=== PATIENT | male | born 1985 | race Two or more races ===

== ENCOUNTER 2020-02-10 09:46 | Day surgery (SDC) | payer OTHER, SELFPAY ==
[2020-02-05 15:00] VITALS: BMI 30.7
--- NOTE | 2020-02-05 15:30 | HO.ANESPROP2 ---
Documented by User: Barbara Lewis 02/05/20 15:32 HPI - Anesthesia Eval Consult details Narrative: 34yo M for colonoscopy: abd pain, change in bowel habits PMFSH Past Medical History Medical History Back pain Hx of irritable bowel syndrome Hx of renal calculi Lab test negative for COVID-19 virus Mood changes Surgical History Surgical History Hx of excision of mass Social History Social History Smoking Status: Current every day smoker Years Smoked: 13 Smoked in Last 30 Days: Yes Use of substances other than those prescribed or required for medical reasons: Yes Substance Use Frequency: Occasionally Advance Directives Information Provided: No Recently lost weight without trying: No Meds Allergies Allergy/AdvReac Type Severity Reaction Status Date / Time shrimp Allergy Itching Verified 02/05/20 15:10 Home Medications Medication Instructions Recorded Confirmed Type dicyclomine 20 mg PO TID 02/09/20 02/09/20 History Exam Exam Date and Time: February 05, 2020 1530 Height,Weight and Vital Signs: Height 5 ft 11 in Weight 99.79 kg Pertinent Lab Results Pertinent Lab Results: Laboratory Tests 12/17/19 12/17/19 13:43 13:43 WBC 6.8 Hgb 15.3 Hct 45.0 Plt Count 351 Sodium 139 Potassium 4.2 Chloride 103 BUN 9 Creatinine 0.99 Documented by User: Nancy Garcia 02/10/20 11:33 PMFSH Past Medical History Medical History Back pain Hx of irritable bowel syndrome Hx of renal calculi Lab test negative for COVID-19 virus Mood changes Family History Family history of problems with anesthesia: No Surgical History Surgical History Hx of excision of mass History of Problems with Anesthesia: No Social History Social History Smoking Status: Current every day smoker Years Smoked: 13 Smoked in Last 30 Days: Yes Use of substances other than those prescribed or required for medical reasons: Yes Substance Use Frequency: Occasionally Advance Directives Information Provided: No Recently lost weight without trying: No Meds Allergies Allergy/AdvReac Type Severity Reaction Status Date / Time shrimp Allergy Itching Verified 02/05/20 15:10 Home Medications Medication Instructions Recorded Confirmed Type dicyclomine 20 mg PO TID 02/09/20 02/09/20 History Exam Height,Weight and Vital Signs: Vital Signs Temp Pulse Resp BP Pulse Ox 02/10/20 10:46 97.3 F 84 16 117/72 97 Airway Mallampati Class: II TM Dist: >3cm Heart: RRR Lungs: CTAB Assessment and Plan Assessment Anesthesia Assessment: Anesthesia Plan Discussed and Chart Reviewed Final Anesthetic Review NPO: Yes ASA Class: II Final Preanesthetic Review: No Changes in Pt Med Stat, Meds/Allgs Chart Reviewed, Consent Obtained/Reviewed and Anes Risks/Benef Reviewed Patient Risk: Low Procedure Risk: Low Anesthetic Plan Anesthetic Plan: MAC: Disposition: Standard PACU
[2020-02-10] MEDS: Lactated Ringers 1,000 ML 100 ML IVCONT (10:45)
[2020-02-10 10:46] VITALS: BP 117/72; PULSE 84; RESP 16; TEMP 36.3; O2SAT 97
--- NOTE | 2020-02-10 11:39 | MHC.SHP ---
Pre-Procedural Eval Section A The patient is an INPATIENT: No The History & Physical has been completed within 30 days and I have reviewed it.: No Section B Chief Complaint: Abdominal Pain Details of Present Illness: RECTAL BLEEDING, FREQUENT MOVEMENTS Relevant Family History (Specify if Yes): No Relevant Social History: None Present Medications: see Short Stay Collaborative assessment Medical History: Significant History (IBS, ANXIETY) History of Previous Operations: No relevant previous surgery Allergies: Allergies Allergy/AdvReac Type Severity Reaction Status Date / Time shrimp Allergy Itching Verified 02/05/20 15:10 Review of Systems Sugical H&P ROS: Negative: Constitution, Cardiovascular, Respiratory and Gastrointestinal Exam Surgical H&P Exam: Normal: HEENT, Normal: Heart, Normal: Lungs, Normal: Extremities and Normal: Skin Plan Diagnosis/Plan: Unchanged Patient has been examined and remains a candidate for the planned procedure--YES
--- NOTE | 2020-02-10 12:41 | PM.PROC ---
Brief Operative Note Date of procedure: 02/10/20 Pre-op diagnosis: Rectal bleeding, Increased frequency of stool Post-op diagnosis: other (Colonic polyps, Diverticulosis right and left, 1+ Internal hemorrhoids.) Procedure: COLONOSCOPY WITH BX (TI, RIGHT COLON, RECTOSIGMOID; POLYPS EXCISIONAL X2 AND COLD SNARE, X 1(hex) Anesthesia: MAC (JALEEL CASPER) Surgeon: Ashley Elise Estimated blood loss (mL): 0 Pathology: other (DISTAL TRANSVERSE COLO-POLYP, TERM. ILEAL-BX; RT COLON BX,, PROX TRANSVERSE COLON-POLYP, RECTOSIG BX.) Condition: stable Disposition: PACU
[2020-02-10 12:44] VITALS: BP 106/63; PULSE 70; RESP 14; TEMP 36.3; O2SAT 98
[2020-02-10 12:59] VITALS: BP 114/74; PULSE 67; RESP 20; O2SAT 99
--- NOTE | 2020-02-10 13:16 | HO.POSTANES ---
Post Anesthesia Evaluation Post Anesthesia Evaluation Vital Signs: Vital Signs Temp Pulse Resp BP Pulse Ox 02/10/20 12:59 97.3 F 67 20 114/74 99 02/10/20 12:44 97.3 F 70 14 106/63 98 02/10/20 10:46 97.3 F 84 16 117/72 97 Anesthesia: Monitored Mental Status: Awake Pain Control: Satisfactory Nausea/Vomiting: None Hydration: Adequate Anesthesia-Related Issues: No Anes. Related Issues
--- NOTE | 2020-02-10 15:56 | OP_ITS ---
SURGEON: Ashley Elise MD PROCEDURE PERFORMED: Colonoscopy with biopsies, multiple (3 polyps excisional x2, cold snare with polypectomy with hexagonal snare x1, residual trimming with biopsy forceps), resolution clip on biopsy site in the terminal ileum. ESTIMATED BLOOD LOSS: Less than 10 mL. COMPLICATIONS: No complications. ANESTHESIA: Monitored. ANESTHESIOLOGIST: Alfonso Souza CRNA.Alfonso Souza CRNA. ASSISTANTS: No bilingual medical assistant. SPECIMENS: Specimens removed: 1. Distal transverse colon. 2. Terminal ileal. 3. Right colon biopsies. 4. Proximal transverse colon polyp, ascending colon polyp, use of hexagonal snare and trimming with cold biopsy forceps. 5. Rectosigmoid biopsy. PREOPERATIVE DIAGNOSES: 34-year-old male with episodic rectal bleeding, increased frequency of stool. The patient has major concerns about having underlying inflammatory bowel disease or perhaps even malignancy. POSTOPERATIVE DIAGNOSES: Colonic polyps, Pandiverticulosis, 1+ Internal Hemorrhoids. [facility] DIRECTOR: Dr. Elise. FINDINGS: Digital rectal exam revealed prostate to be unremarkable. Video colonoscope was introduced without difficulty. It was navigated into the rectosigmoid, sigmoid area. Scope slowly advanced through descending, transverse, ascending colon down into the cecum. I was able to intubate the terminal ileum for a distance of about 6 to 8 cm. Villi had normal appearance. Biopsy was obtained. COLO Prep was good, however, there was a residue of bilious fluid coating in the colon that required a moderate amount of flushing and suctioning. Fortunately, no fibrous residue was present. There were diverticula seen both right and left-sided. Prior to the terminal ileal biopsy, a polyp had been identified in the distal transverse colon, this was removed initially as specimen A. Polyp was removed excisionally with cold biopsy forceps. Due to oozing on the biopsy site in the terminal ileum, a Resolution Clip was placed on area of the biopsy site. Other specimens were removed as outlined under specimens. As I came down into the rectum, retroflexed view showed no outstanding lesions and on withdrawing the scope, the anorectal verge was clear. There were 1+ internal hemorrhoids noted. PLAN: The diminutive polyps that appear to be adenomatous. He will be on a screening pattern most likely of 5 years. Further management will be adjusted by the histology on the random biopsies. Clinical history is in keeping with irritable bowel syndrome especially in the setting of pandiverticulosis. Note, the patient said that he did not tolerate using the dicyclomine previously prescribed. It made him nauseous. He will be re-seen in the office postprocedure for further evaluation and management. GRAFT OR IMPLANTS: No grafts or implants (resolution clip was placed). CONDITION: Postprocedure, stable. MD NICKOLAS Ramsey/MUNA / [id number] MTDD
== END 2020-02-10 13:24 | disposition home or self-care (01) ==
PROVIDERS: PCP Nurse Practitioner Family; Visit Provider Internal Medicine Gastroenterology
PROC: 0DJD8ZZ Inspection of Lower Intestinal Tract, Via Natural or Artificial Opening Endoscopic (ICD-10-PCS; CPT 45378; principal; 2020-02-10 10:50)
DX: K62.5 Hemorrhage of anus and rectum (principal); D12.2 Benign neoplasm of ascending colon; D12.3 Benign neoplasm of transverse colon; K57.30 Diverticulosis of large intestine without perforation or abscess without bleeding; K64.8 Other hemorrhoids; K58.9 Irritable bowel syndrome, unspecified
CPT/HCPCS: 45385; 45380; 88305

== ENCOUNTER 2020-02-12 16:19 | Outpatient (REF) | payer OTHER, SELFPAY ==
[2020-02-12 17:30] LABS: MANUAL DIFF FLAG NO
[2020-02-12 17:41] LABS: Basophils Percent Auto 0.4 % (0-2); Eosinophils Absolute Auto 0.1 X10*3/uL (0.0-0.4); Eosinophils Percent Auto 1.6 % (0-4); Hematocrit 39.9 % (42-52); Imm Gran Abs Auto 0.04 X10*3/uL (0.00-0.03); Imm Gran Pct Auto 0.5 % (0.0-0.4); Lymphocytes Absolute Auto 2.8 X10*3/uL (1.2-4.9); Lymphocytes Percent Auto 34.4 % (20-40); Mean Corpuscular HGB Conc 35.1 g/dl (31.0-36.0); Mean Corpuscular Volume 82.8 fL (80-98); Mean Platelet Volume 10.1 fL (9.4-12.4); Monocytes Absolute Auto 0.7 X10*3/uL (0.1-1.2); Monocytes Percent Auto 8.4 % (2-11); Neutrophils Absolute Auto 4.5 X10*3/uL (2.0-8.3); Neutrophils Percent Auto 54.7 % (45-73); Platelet Count 280 X10*3/uL (160-400); Red Blood Count 4.82 X10*6/uL (4.60-5.80); Red Cell Distribution Width 12.1 % (11.0-16.0); White Blood Count 8.3 X10*3/uL (4.8-10.8)
== END 2020-02-12 16:20 | disposition home or self-care (01) ==
LOC: HO.LAB 16:19
PROVIDERS: PCP Nurse Practitioner Family; Visit Provider Internal Medicine Gastroenterology
DX: K92.1 Melena (principal)
CPT/HCPCS: 36415; 85025

== ENCOUNTER → 2020-02-26 14:03 | Outpatient (BNVA) | payer OTHER, SELFPAY | PROVIDERS: PCP Nurse Practitioner Family; Referring Provider Nurse Practitioner Family; Visit Provider Physician Assistant | DX: D36.9 Benign neoplasm, unspecified site (principal); K58.9 Irritable bowel syndrome, unspecified | CPT/HCPCS: 99212 ==

== ENCOUNTER 2020-09-06 15:51 | Outpatient (REF) | payer OTHER, SELFPAY ==
[2020-09-08 09:59] LABS: CT PCR NOT DETECTED (Not Detect.); NG PCR NOT DETECTED (Not Detect.)
== END 2020-09-06 15:52 | disposition home or self-care (01) ==
LOC: HO.LAB 15:51
PROVIDERS: Visit Provider Nurse Practitioner Family
DX: R35.0 Frequency of micturition (principal)
CPT/HCPCS: 87086; 87491; 87591

== ENCOUNTER 2020-09-07 06:19 | Outpatient (REF) | payer OTHER, SELFPAY ==
[2020-09-07 11:48] LABS: Anion Gap 13 (12-20); Blood Urea Nitrogen 16 mg/dL (9-16); Calcium 8.8 mg/dL (8.4-10.2); Carbon Dioxide 24 mmol/L (22-29); Chloride 106 mmol/L (96-108); Estimated Glomerular Filt Rate > 60; Glucose Fasting 78 mg/dL (60-99); Potassium 3.7 mmol/L (3.3-5.1); Sodium 139 mmol/L (135-145)
== END 2020-09-07 06:20 | disposition home or self-care (01) ==
LOC: HO.HMGCLDS 06:19
PROVIDERS: PCP Nurse Practitioner Family; Visit Provider Nurse Practitioner Family
DX: R35.0 Frequency of micturition (principal)
CPT/HCPCS: 36415; 80048

== ENCOUNTER 2021-02-25 15:58 | Outpatient (REF) | payer OTHER, SELFPAY ==
--- NOTE | ~2021-02-25 | XR_ITS ---
EXAMINATION: XR CHEST CLINICAL INFORMATION: Cough COMPARISON: None TECHNIQUE: 2 views of the chest were obtained. FINDINGS: The lungs are well expanded. There is no focal consolidation, edema, or effusion. No pneumothorax. Azygos fissure noted. The cardiomediastinal silhouette is within normal limits. No acute osseous abnormality. XR/XR chest 2V IMPRESSION: Clear lungs.
== END 2021-02-25 15:59 | disposition home or self-care (01) ==
LOC: HO.HMGCX 15:58
PROVIDERS: Visit Provider Internal Medicine
DX: R05.9 Cough, unspecified (principal)
CPT/HCPCS: 71046

== ENCOUNTER 2021-02-25 16:15 | Outpatient (REF) | payer OTHER, SELFPAY | END 2021-02-25 16:16 | disposition home or self-care (01) | LOC: HO.LAB 16:15 | PROVIDERS: Visit Provider Internal Medicine | DX: R43.9 Unspecified disturbances of smell and taste (principal); Z20.822 Contact with and (suspected) exposure to COVID-19 | CPT/HCPCS: 0241U; 36415 ==

== ENCOUNTER 2021-02-26 11:05 | Outpatient (REF) | payer OTHER, SELFPAY ==
[2021-02-26 12:11] LABS: Influenza A PCR NEGATIVE (Negative); Influenza B PCR NEGATIVE (Negative); Resp Syncy Virus RNA Qual PCR NEGATIVE (Negative); SARS COV2 PCR INHOUSE NEGATIVE (Negative)
== END 2021-02-26 11:06 | disposition home or self-care (01) ==
LOC: HO.LNP 11:05
PROVIDERS: Visit Provider Internal Medicine
DX: Z20.822 Contact with and (suspected) exposure to COVID-19 (principal); R43.9 Unspecified disturbances of smell and taste
CPT/HCPCS: 0241U

== ENCOUNTER 2021-03-28 14:18 | Outpatient (REF) | payer OTHER, SELFPAY ==
[2021-03-28 15:11] LABS: Influenza A PCR NEGATIVE (Negative); Influenza B PCR NEGATIVE (Negative); Resp Syncy Virus RNA Qual PCR NEGATIVE (Negative); SARS COV2 PCR INHOUSE NEGATIVE (Negative)
== END 2021-03-28 14:19 | disposition home or self-care (01) ==
LOC: HO.LNP 14:18
PROVIDERS: Visit Provider Physician Assistant Medical
DX: J06.9 Acute upper respiratory infection, unspecified (principal); Z20.822 Contact with and (suspected) exposure to COVID-19
CPT/HCPCS: 0241U

== ENCOUNTER 2022-11-16 12:53 | Outpatient (AMB) | payer OTHER, SELFPAY ==
--- NOTE | 2022-11-16 13:03 | A.OFFPC_ITS ---
Vital Signs 11/16/22 13:04 Height 5 ft 11 in Weight 239 lb 6 oz BMI 33.4 BP 118/78 Blood Pressure Location Lt brachial Position Sitting Respiration 12 Pulse 79 Pulse Source Pulse Oximeter Temp 97.9 F Temp Source Temporal Artery Scan Pulse Oximetry (%) 99 Oxygen Delivery Method Room Air Intake Visit Reasons: [employer]/needs physical Intake Note: Patient states that he would like all labs done. Patient states that he would like to check testosterone levels. Patient states that when he went to the ER he was told he had diverticulitis. Patient states that he has joint pain due to him being very active. Patient states he has bone spurs. Patient would like a refill on Albuterol inhaler and Cetirizine. Transition Assistant Required: No Accompanied by: Self / Same As Patient Allergies cat dander Allergy (Intermediate, Verified 11/16/22 13:25) Trouble Breathing dog dander Allergy (Intermediate, Verified 11/16/22 13:25) Trouble Breathing shrimp Allergy (Verified 11/16/22 13:25) Itching Medication List - Last Reconciled 11/16/22 by Diann Prabhakar CNP albuterol sulfate 90 mcg/actuation 2 puffs inhalation Q6H PRN cetirizine (Zyrtec) 10 mg PO DAILY PRN 90 days Tobacco use date assessed: 11/16/22 Dental Screening Dental Screen Date: 11/16/22 Did you have a dental visit in the last 12 months?: Yes Did you have a dental problem in the last 6 months where you did not have access to dental care?: No Was dental information given to patient?: Patient has dentist HPI HPI Comments History of Present Illness Details 37-year-old male presents to [facility]. He is a transfer from [facility] whom he last saw 3-4 years ago. His last blood work was in 2020. He reports h/o allergies and SOB. He is on albuterol inhaler and cetirizine. He admits to eating healthy and exercising routinely. However, he has not been able to lose weight. No acute symptoms today. He has history of tubular adenoma. His next colonoscopy is in 2024. He notes he is sexually active, in a monogamous relationship, and practices safe sex. [facility] Medical History Back pain Diverticulitis Hx of irritable bowel syndrome Hx of renal calculi IBS (irritable bowel syndrome) Lab test negative for COVID-19 virus Mood changes Joleen-Schlatter's disease Surgical History H/O colonoscopy Hx of excision of mass Family History (Updated 11/16/22 @ 13:23 by Nicky Sainz MA) Father Medical history non-contributory Elevated white blood cell count Mother Medical history non-contributory Lump of breast Paternal Grandmother Dementia Maternal Grandfather Lung cancer Family/Other Asthma Social History Housing: Apartment Patient Tobacco Use Status: Former Tobacco user Years Smoked: 13 e-Cigarette/Vaping Use: Never Used service: No Current occupational status: employed Current occupation: [employer] Cognitive needs: No Hearing needs: No Vision needs: No Questionnaire PHQ-9 Over the last 2 weeks, how often have you been bothered by any of the following problems? 1. Little interest or pleasure in doing things: several days 2. Feeling down, depressed, or hopeless: several days 3. Trouble falling or staying asleep, or sleeping too much: more than half the days 4. Feeling tired or having little energy: more than half the days 5. Poor appetite or overeating: several days 6. Feeling bad about yourself - or that you are a failure or have let yourself or your family down: several days 7. Trouble concentrating on things, such as reading the newspaper or watching television: not at all 8. Moving or speaking so slowly that other people could have noticed. Or the opposite - being so fidgety or restless that you have been moving around a lot more than usual: not at all 9. Thoughts that you would be better off or of hurting yourself in some way: not at all Total score: 8 Depression Screening Interpretation: Positive Depression Screening Follow-up: Declines treatment Source: Developed by Drs. Aaron Roew, Fabiola Argueta, Luther Russell and colleagues, with an educational felix from [employer]. Thrive Questionnaire Date Thrive assessed: 11/16/22 I am a: Patient What is your living situation today?: I have a steady place to live Within the past 12 months, did the food you bought not last and you didn't have the money to get more?: Never true Within the past 12 months, did you worry whether your food would run out before you got money to buy more?: Never true Do you have trouble paying for medicines?: No Do you have trouble getting transportation to medical appointments?: No Do you have trouble paying your heating and electricity bill?: No Do you have trouble taking care of your child, family member or friend?: No Do you have trouble with day-to-day activities such as bathing, preparing meals, shopping, managing finances, etc.?: No Are you currently unemployed and looking for a job?: No Are you interested in more education?: No Please select the resources that you would like help with: None Currently or been in a relationship where the following occur: no concerns reported AUDIT C Alcohol Use Questionnaire (AUDIT-C) 1. How often do you have a drink containing alcohol?: 2-4 times a month 2. How many drinks containing alcohol do you have on a typical day when you are drinking?: 1 or 2 3. How often do you have six or more drinks on one occasion?: Never Total Score: 2 LENORA-7 AMB Questionnaire LENORA-7 Date LENORA - 7 assessed: 11/16/22 Feeling nervous, anxious, or on edge: 0 = Not at all Not being able to stop or control worryin = Not at all Worrying too much about different things: 0 = Not at all Trouble relaxin = Not at all Being so restless that it is hard to sit still: 1 = Several days Becoming easily annoyed or irritable: 1 = Several days Feeling afraid as if something awful might happen: 0 = Not at all Total LENORA-7 score (0-4 normal; 5-9 mild; 10-14 moderate; 15-21 severe): 2 Source: Developed by Drs. Aaron Rowe, Fabiola Argueta, Luther Russell and colleagues, with an educational felix from [employer]. Review of Systems Const Details: Denies chills, Denies fatigue, Denies fever(s), Denies headache(s) and Denies weakness HEENT Denies change in vision, Denies dizziness, Denies headache(s), Denies hearing loss, Denies nasal congestion, Denies sinus pain, Denies sinus pressure and Denies sore throat Card Denies chest pain, Denies lightheadedness, Denies dyspnea and Denies other (palpitations) Resp Denies cough, Denies dyspnea and Denies wheezing GI Denies abdominal pain, Denies melena, Denies hematochezia, Denies change in bowel habits, Denies dyspepsia and Denies nausea Denies hematuria and Denies dysuria Musc Denies abnormal gait, Denies myalgias, Denies arthralgias, Denies numbness and Denies tingling Skin/Breast Denies rash, Denies unusual bruising and Denies wounds Neuro Denies abnormal gait, Denies dizziness, Denies headache(s), Denies memory loss, Denies numbness, Denies Sensory deficit (Neuro), Denies tingling and Denies weakness Psych Denies anxiety, Denies depression and Denies memory loss Endo Denies cold intolerance, Denies fatigue, Denies heat intolerance, Denies polydipsia and Denies polyuria Pal/Lymph Denies easy bleeding and Denies easy bruising Aller/Immun Denies wheezing Physical exam (Primary Care) Vital Signs: Last Vital Signs Temp 97.9 F 11/16/22 13:04 Pulse 79 11/16/22 13:04 Resp 12 11/16/22 13:04 BP 118/78 11/16/22 13:04 Pulse Ox 99 11/16/22 13:04 Oxygen Delivery Method Room Air 11/16/22 13:04 BMI result Body Mass Index 33.4 Tobacco/Smoking Status: Tobacco use Status Tobacco use date assessed 11/16/22 11/16/22 13:21 Patient Tobacco Use Status Former Tobacco user 11/16/22 13:21 e-Cigarette/Vaping Use Never Used 11/16/22 13:21 PHQ-9: PHQ-9 Score PHQ-9: Total score 8 11/16/22 13:21 Depression Screening Interpretation: Positive Depression Screening Follow-up: Declines treatment Thrive Assessment: Date of Thrive Assessment Date Thrive assessed 11/16/22 11/16/22 13:21 Currently or been in a relationship where the following occur: no concerns reported Const Other: General: no acute distress, well developed, alert and awake Nutritional Appearance: well nourished Orientation/consciousness: patient oriented x3 [facility] Head: Yes normocephalic and Yes atraumatic Ears: hearing grossly normal bilaterally and TM's normal bilaterally General nose exam: Normal external nose present and Normal nares present Mouth: Normal oral and palatal mucosa present and moist mucous membranes Teeth and gingiva: dentition normal Throat: Yes oropharynx normal Eyes Pupils: Equal, round and reactive pupils present and Pupil accommodation reflex normal EOM: EOMs intact bilaterally Neck Neck: Yes normal visual inspection, Yes no lymphadenopathy and Yes trachea midline Thyroid: Thyroid normal Carotids: no bruits Lymphatic: no lymphadenopathy noted Chest Chest palpation & inspection: normal inspection of the chest Resp Effort & Inspection: normal respiratory effort Auscultation: clear to auscultation bilaterally Cardio Rate: regular rate Rhythm: regular rhythm Heart sounds: S1 normal heart sound present, S2 normal heart sound present, no gallops, no murmurs and no rubs Bruits: no abdominal aortic bruits and no carotid bruits GI Palpation (GI): No Abdominal aortic bruit present, Soft to palpation, nontender, No hepatosplenomegaly present and No Rebound tenderness present Auscultation: normal bowel sounds General: Yes no CVA tenderness Back/Spine/Pelvis Back: no CVA tenderness Cervical Spine: cervical ROM normal and No Cervical spine tenderness Thoracic/Lumbar Spine: thoraco-lumbar ROM normal, No pain with thoraco-lumbar ROM, No thoracic spinal tenderness and No lumbar spinal tenderness Skin General: warm and dry. Normal skin color. Normal skin turgor Lesions: no lesions Rashes: no rashes Trauma: no lacerations or abrasions Wounds: no wounds Nails: normal Neuro General: patient oriented x3, gait normal and CN's II-XI intact bilaterally Cranial nerves: Yes Equal, round and reactive pupils present Cognition (Neuro): normal cognition Gait exam (Neuro): Normal gait present Motor exam (neuro): 5/5 motor strength present throughout Sensory Exam: No Sensory deficit (Neuro) Deep tendon reflexes (DTR's): Right patellar reflex intensity grade: 2+ and Left patellar reflex intensity grade: 2+ Extrem General: Yes normal to inspection, No edema and No calf tenderness Psych Appearance: grossly normal Affect: normal affect Attitude: cooperative Thought process: Normal thought process present Assessment and Plan Assessment & Plan (1) Normal physical examination, routine: Code(s): Z. - Encounter for general adult medical examination without abnormal findings Plan: No significant physical restrictions or limitations noted (2) Laboratory tests ordered as part of a complete physical exam (CPE): Code(s): Z. - Encounter for general adult medical examination without abnormal findings Plan: Fasting labs ordered as part of a complete physical exam. Advised to fast for at least 10 hours before getting labs drawn. May drink water Verbalized understanding and agreed with treatment plan. Orders: Orders Comprehensive [place]. Panel Fast Today Z. - Encounter for general adult medical examination without abnormal findings Lipid Panel Today Z. - Encounter for general adult medical examination without abnormal findings TSH reflex Free T4 Today Z. - Encounter for general adult medical examination without abnormal findings Complete Blood Count Auto Diff Today Z. - Encounter for general adult medical examination without abnormal findings UA CC w/rflx Micro + Cult Today Z. - Encounter for general adult medical examination without abnormal findings Medications: Refilled cetirizine (Zyrtec) 10 mg PO DAILY 90 days PRN 90 tabs 1RF allergy symptoms albuterol sulfate 90 mcg/actuation 2 puffs inhalation Q6H PRN 8.5 grams 3RF shortness of breath or wheezing Coding Level of Care Code Est Pt Prev Care [id number]) Diagnoses Normal physical examination, routine Z. Laboratory tests ordered as part of a complete physical exam (CPE) Z.00
[2022-11-16 13:04] VITALS: BP 118/78; PULSE 79; RESP 12; TEMP 36.6; O2SAT 99; BMI 33.4
== END 2022-11-16 13:50 | disposition home or self-care (01) ==
PROVIDERS: PCP Nurse Practitioner Family; Visit Provider Nurse Practitioner Family
DX: Z00.00 Encounter for general adult medical examination without abnormal findings (principal)
CPT/HCPCS: 99395

== ENCOUNTER 2022-11-17 06:09 | Outpatient (REF) | payer OTHER, SELFPAY ==
[2022-11-17 11:09] LABS: MANUAL DIFF FLAG NO
[2022-11-17 11:30] LABS: Basophils Absolute Auto 0.1 X10*3/uL (0.0-0.2); Basophils Percent Auto 0.7 % (0-2); Eosinophils Absolute Auto 0.2 X10*3/uL (0.0-0.4); Eosinophils Percent Auto 3.1 % (0-4); Hematocrit 44.5 % (42.0-52.0); Hemoglobin 15.5 g/dl (14.0-18.0); Imm Gran Abs Auto 0.02 X10*3/uL (0.00-0.03); Imm Gran Pct Auto 0.3 % (0.0-0.4); Lymphocytes Absolute Auto 2.6 X10*3/uL (1.2-4.9); Mean Corpuscular HGB Conc 34.8 g/dl (31.0-36.0); Mean Corpuscular Hemoglobin 29.4 pg (27.0-33.0); Mean Corpuscular Volume 84.4 fL (80.0-98.0); Mean Platelet Volume 10.1 fL (9.4-12.4); Monocytes Absolute Auto 0.6 X10*3/uL (0.1-1.2); Monocytes Percent Auto 7.4 % (2-11); Neutrophils Absolute Auto 4.1 x10*3/uL (2.0-8.3); Neutrophils Percent Auto 54.5 % (45-73); Platelet Count 305 X10*3/uL (160-400); Red Blood Count 5.27 X10*6/uL (4.60-5.80); Red Cell Distribution Width 12.4 % (11.0-16.0); White Blood Count 7.5 X10*3/uL (4.8-10.8)
[2022-11-17 11:56] LABS: Appearance Urine Clear; Color Urine Yellow; Glucose Urine UA Negative (Negative); Leukocyte Esterase Urine Negative (Negative); Nitrite Urine Negative (Negative); Specific Gravity - Urine 1.015 (1.005-1.025); Urine Blood Negative (Negative); Urine Ketones Negative (Negative); Urine Protein Negative (Neg-Trace)
[2022-11-17 12:12] LABS: Alanine Aminotransferase 33 U/L (0-40); Albumin Level 4.4 g/dL (3.5-5.0); Alkaline Phosphatase 66 U/L (39-117); Anion Gap 18 (12-20); Aspartate Amino Transferase 27 U/L (5-37); Bilirubin Total 0.4 mg/dL (0.0-1.0); Blood Urea Nitrogen 10 mg/dL (9-16); Carbon Dioxide 18 mmol/L (22-29); Chloride 105 mmol/L (96-108); Cholesterol 198 mg/dL; Estimated Glomerular Filt Rate > 60; Glucose Fasting 97 mg/dL (60-99); HDL Cholesterol 42 mg/dL; LDL Cholesterol Calculated 119 mg/dl; Potassium 4.1 mmol/L (3.3-5.1); Sodium 137 mmol/L (135-145); Total Protein 7.5 g/dL (6.5-8.0); Triglycerides 188 mg/dL
== END 2022-11-17 06:10 | disposition home or self-care (01) ==
LOC: HO.HMGCLDS 06:09
PROVIDERS: PCP Nurse Practitioner Family; Visit Provider Nurse Practitioner Family
DX: Z00.00 Encounter for general adult medical examination without abnormal findings (principal)
CPT/HCPCS: 36415; 80053; 80061; 81003; 84443; 85025

== ENCOUNTER 2023-01-22 09:28 | Outpatient (AMB) | payer OTHER, SELFPAY ==
[2023-01-22 09:34] VITALS: BP 128/70; PULSE 104; RESP 13; TEMP 36.6; O2SAT 98; BMI 33.9
--- NOTE | 2023-01-22 09:34 | A.OFFPC_ITS ---
Vital Signs 01/22/23 09:34 Height 5 ft 11 in Weight 243 lb 2 oz BMI 33.9 BP 128/70 Blood Pressure Location Lt brachial Position Sitting Respiration 13 Pulse 104 H Pulse Source Pulse Oximeter Temp 98 F Temp Source Temporal Artery Scan Pulse Oximetry (%) 98 Oxygen Delivery Method Room Air Intake Visit Reasons: Back Pain/ Work Note Intake Note: Patient states that he is unable to sit longer than 2 minutes due to the severity of his back pain. Patient states that it is his sciatic nerve but he never went to go see anyone about it until now. 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 Accompanied by: Self / Same As Patient Allergies cat dander Allergy (Intermediate, Verified 01/22/23 10:05) Trouble Breathing dog dander Allergy (Intermediate, Verified 01/22/23 10:05) Trouble Breathing shrimp Allergy (Verified 01/22/23 10:05) Itching Medication List - Last Reconciled 01/22/23 by Diann Prabhakar CNP albuterol sulfate 90 mcg/actuation 2 puffs inhalation Q6H PRN albuterol sulfate 90 mcg/actuation (Ventolin HFA) 2 puffs inhalation Q6H PRN cetirizine (Zyrtec) 10 mg PO DAILY PRN 90 days Tobacco use date assessed: 11/16/22 Dental Screening Dental Screen Date: 01/22/23 Did you have a dental visit in the last 12 months?: Yes Did you have a dental problem in the last 6 months where you did not have access to dental care?: No Was dental information given to patient?: Patient has dentist HPI HPI Comments History of Present Illness Details 37-year-old male presents with complaint s of intermittent low back pain. He notes that the pain is localized to the right side of his lower back. He states his symptoms have been ongoing for the 4 days. He reports intermittent mild tightness to his entire right lower extremity. His symptoms intensifies with prolonged sitting and bending forward, and completely resolves with lying. He states he has been taking naproxen with some relief. He denies fall, injury, or trauma. He notes that he works for [employer] and his work requires prolonged walking and bending movements. [facility] Medical History (Updated 01/22/23 @ 10:28 by Diann Prabhakar CNP) [place]-Schlatter's disease Diverticulitis IBS (irritable bowel syndrome) Mood changes Lab test negative for COVID-19 virus Back pain Hx of irritable bowel syndrome Hx of renal calculi Surgical History H/O colonoscopy Hx of excision of mass Family History Father Elevated white blood cell count Leukemia Leukemia in remission Mother Medical history non-contributory Lump of breast Paternal Grandmother Dementia Maternal Grandfather Lung cancer Family/Other Asthma Social History Housing: Apartment Patient Tobacco Use Status: Current everyday Tobacco user Tobacco use type: Smokeless Tobacco Years Smoked: 13 e-Cigarette/Vaping Use: Never Used service: No Current occupational status: employed Current occupation: [employer] Cognitive needs: No Hearing needs: No Vision needs: No Questionnaire Thrive Questionnaire Date Thrive assessed: 11/16/22 LENORA-7 AMB Questionnaire LENORA-7 Date LENORA - 7 assessed: 11/16/22 Source: Developed by Drs. Aaron Rowe, Fabiola Argueta, Luther Russell and colleagues, with an educational felix from [employer]. Review of Systems Const Details: Const Denies chills, Denies fatigue, Denies fever(s), Denies headache(s) and Denies weakness ENT Denies dizziness and Denies headache(s) Card Denies chest pain, Denies lightheadedness, Denies dyspnea and Denies other (Palpitations) Resp Denies cough, Denies dyspnea, Denies wheezing and Denies other ( shortness of breath) GI Denies abdominal pain, Denies melena, Denies hematochezia, Denies change in bowel habits, Denies dyspepsia and Denies nausea Denies hematuria and Denies dysuria Musc Reports low back pain, Denies abnormal gait, Denies numbness and Denies tingling Skin/Breast Denies rash, Denies unusual bruising and Denies wounds Neuro Denies abnormal gait, Denies dizziness, Denies headache(s), Denies memory loss, Denies numbness, Denies Sensory deficit (Neuro), Denies tingling and Denies weakness Psych Denies anxiety, Denies depression, Denies memory loss Endo Denies cold intolerance, Denies fatigue, Denies heat intolerance, Denies polydipsia and Denies polyuria Aller/Immun Denies wheezing Physical exam (Primary Care) Vital Signs: Last Vital Signs Temp 98 F 01/22/23 09:34 Pulse 104 H 01/22/23 09:34 Resp 13 01/22/23 09:34 BP 128/70 01/22/23 09:34 Pulse Ox 98 01/22/23 09:34 Oxygen Delivery Method Room Air 01/22/23 09:34 BMI result Body Mass Index 33.9 Tobacco/Smoking Status: Tobacco use Status Tobacco use date assessed 11/16/22 01/22/23 09:34 Patient Tobacco Use Status Current everyday Tobacco 01/22/23 09:42 Tobacco use type Smokeless Tobacco 01/22/23 09:42 e-Cigarette/Vaping Use Never Used 01/22/23 09:34 Thrive Assessment: Date of Thrive Assessment Date Thrive assessed 11/16/22 01/22/23 09:34 Const Other: General: no acute distress and well developed Nutritional Appearance: well nourished Orientation/consciousness: patient oriented x3 HENMT Head: Yes normocephalic and Yes atraumatic Eyes General: appearance normal, both eyes and all related structures Pupils: Equal, round and reactive pupils present EOM: EOMs intact bilaterally Resp Effort & Inspection: normal respiratory effort Auscultation: clear to auscultation bilaterally Cardio Rate: regular rate Rhythm: regular rhythm Heart sounds: S1 normal heart sound present, S2 normal heart sound present, no gallops, no murmurs and no rubs GI Palpation (GI): No Abdominal aortic bruit present, Soft to palpation, nontender, No hepatosplenomegaly present and No Rebound tenderness present Auscultation: normal bowel sounds General: Yes no CVA tenderness Back/Spine/Pelvis Back: no CVA tenderness Cervical Spine: cervical ROM normal and No Cervical spine tenderness Thoracic/Lumbar Spine: thoraco-lumbar ROM normal, No pain with thoraco-lumbar ROM, No thoracic spinal tenderness and No lumbar spinal tenderness. Tenderness to palpation of the right-sided lower back Extrem General: Yes normal to inspection, No edema and No calf tenderness Negative straight leg raise bilaterally Skin General: warm and dry. Normal skin color. Normal skin turgor Lesions: no lesions Rashes: no rashes Trauma: no lacerations or abrasions Wounds: no wounds Nails: normal Neuro General: patient oriented x3, gait normal and no focal neuro deficit Cranial nerves: Yes Equal, round and reactive pupils present Cognition (Neuro): normal cognition Gait exam (Neuro): Normal gait present Sensory Exam: No Sensory deficit (Neuro) Psych Appearance: grossly normal Affect: normal affect Attitude: cooperative Thought process: Normal thought process present Assessment and Plan Assessment & Plan (1) Back pain: Code(s): M54.9 - Dorsalgia, unspecified Qualifiers: Back pain location: low back pain Chronicity: acute Back pain laterality: right Sciatica presence: without sciatica Qualified Code(s): M54.50 - Low back pain, unspecified Plan: Tenderness to palpation of the right-sided lower back Negative straight leg raise bilaterally Likely back strain or sprain. Arthritis is also possible Continue to take naproxen as needed for pain or discomfort Stretching and warm/cold compresses encouraged X-ray of the lumbar spine ordered Work excuse letter given for 4 days Return with worsening or new symptoms. May referred to physical therapy Verbalized understanding and agreed with treatment plan. Orders: Orders XR lumbar spine 2-3V Today M54.9 - Dorsalgia, unspecified Coding Level of Care Code Est Pt Level 3 (44494) Diagnoses Acute right-sided low back pain without sciatica M54.50 Back pain location: low back pain Chronicity: acute Back pain laterality: right Sciatica presence: without sciatica
== END 2023-01-22 10:24 | disposition home or self-care (01) ==
PROVIDERS: PCP Nurse Practitioner Family; Visit Provider Nurse Practitioner Family
DX: M54.50 Low back pain, unspecified (principal)
CPT/HCPCS: 99213

== ENCOUNTER 2023-01-22 10:58 | Outpatient (REF) | payer OTHER, SELFPAY ==
--- NOTE | ~2023-01-22 | XR_ITS ---
EXAMINATION: XR LUMBOSACRAL SPINE CLINICAL INFORMATION: Pain COMPARISON: None available. TECHNIQUE: Three views of the lumbosacral spine. FINDINGS: Bone alignment is normal. No fracture or dislocation. Mild degenerative spondylosis and disc space narrowing at L3-L4. Paraspinal soft tissues are unremarkable. XR/XR lumbar spine 2-3V IMPRESSION: Mild degenerative changes at L3-L4.
== END 2023-01-22 10:59 | disposition home or self-care (01) ==
LOC: HO.HMGCX 10:58
PROVIDERS: PCP Nurse Practitioner Family; Visit Provider Nurse Practitioner Family
DX: M54.9 Dorsalgia, unspecified (principal)
CPT/HCPCS: 72100

== ENCOUNTER 2023-11-24 06:56 | Outpatient (REF) | payer OTHER, SELFPAY ==
[2023-11-24 07:16] LABS: MANUAL DIFF FLAG NO
[2023-11-24 07:57] LABS: Basophils Percent Auto 0.5 % (0-2); Eosinophils Absolute Auto 0.2 X10*3/uL (0.0-0.4); Eosinophils Percent Auto 3.4 % (0-4); Hematocrit 42.3 % (42.0-52.0); Hemoglobin 14.8 g/dl (14.0-18.0); Imm Gran Abs Auto 0.02 X10*3/uL (0.00-0.03); Imm Gran Pct Auto 0.4 % (0.0-0.4); Lymphocytes Absolute Auto 2.1 X10*3/uL (1.2-4.9); Lymphocytes Percent Auto 38.2 % (20-40); Mean Corpuscular Hemoglobin 29.1 pg (27.0-33.0); Mean Corpuscular Volume 83.3 fL (80.0-98.0); Mean Platelet Volume 9.4 fL (9.4-12.4); Monocytes Absolute Auto 0.4 X10*3/uL (0.1-1.2); Monocytes Percent Auto 7.7 % (2-11); Neutrophils Absolute Auto 2.8 x10*3/uL (2.0-8.3); Neutrophils Percent Auto 49.8 % (45-73); Platelet Count 276 X10*3/uL (160-400); Red Blood Count 5.08 X10*6/uL (4.60-5.80); Red Cell Distribution Width 12.9 % (11.0-16.0); White Blood Count 5.6 X10*3/uL (4.8-10.8)
[2023-11-24 08:05] LABS: Appearance Urine Clear; Color Urine Yellow; Glucose Urine UA Negative (Negative); Leukocyte Esterase Urine Negative (Negative); Nitrite Urine Negative (Negative); Urine Blood Negative (Negative); Urine Ketones Negative (Negative); Urine Protein Negative (Neg-Trace)
[2023-11-24 08:26] LABS: Alanine Aminotransferase 25 U/L (0-40); Albumin Level 4.5 g/dL (3.5-5.0); Alkaline Phosphatase 79 U/L (39-117); Anion Gap 10 (12-20); Aspartate Amino Transferase 26 U/L (5-37); Bilirubin Total 0.5 mg/dL (0.0-1.0); Blood Urea Nitrogen 10 mg/dL (9-16); Calcium 9.6 mg/dL (8.4-10.2); Carbon Dioxide 26 mmol/L (22-29); Chloride 109 mmol/L (96-108); Cholesterol 207 mg/dL (<200); Estimated Glomerular Filt Rate > 60; Glucose Fasting 91 mg/dL (60-99); HDL Cholesterol 49 mg/dL (>40); LDL Cholesterol Calculated 141 mg/dL (<100); Potassium 4.3 mmol/L (3.3-5.1); Sodium 141 mmol/L (135-145); Total Protein 7.4 g/dL (6.5-8.0); Triglycerides 85 mg/dL (<150)
[2023-11-24 08:42] LABS: TSH reflex Free T4 1.57 uIU/mL (0.32-4.0)
== END 2023-11-24 06:57 | disposition home or self-care (01) ==
LOC: HO.LAB 06:56
PROVIDERS: PCP Nurse Practitioner Family; Visit Provider Nurse Practitioner Family
DX: Z00.00 Encounter for general adult medical examination without abnormal findings (principal); Z13.6 Encounter for screening for cardiovascular disorders
CPT/HCPCS: 36415; 80053; 80061; 81003; 84443; 85025

== ENCOUNTER 2023-11-26 08:51 | Outpatient (AMB) | payer OTHER, SELFPAY ==
--- NOTE | 2023-11-26 08:54 | A.OFFPC_ITS ---
Vital Signs 11/26/23 09:01 Height 5 ft 11 in Weight 221 lb 6 oz BMI 30.9 BP 104/64 Blood Pressure Location Lt brachial Position Sitting Respiration 16 Pulse 66 Pulse Source Pulse Oximeter Temp 98.0 F Temp Source Temporal Artery Scan Pulse Oximetry (%) 98 Oxygen Delivery Method Room Air Intake Visit Reasons: High Heart rate, Weight loss. Intake Note: patient here c/o he was playing basketball and his heart rate was high and wouldn't not go down from 110. 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 Allergies cat dander Allergy (Intermediate, Verified 11/26/23 09:08) Trouble Breathing dog dander Allergy (Intermediate, Verified 11/26/23 09:08) Trouble Breathing shrimp Allergy (Verified 11/26/23 09:08) Itching Medication List - Last Reconciled 11/26/23 by Diann Prabhakar CNP albuterol sulfate 90 mcg/actuation 2 puffs inhalation Q6H PRN albuterol sulfate 90 mcg/actuation (Ventolin HFA) 2 puffs inhalation Q6H PRN cetirizine (Zyrtec) 10 mg PO DAILY PRN 90 days Tobacco use date assessed: 11/26/23 Dental Screening Dental Screen Date: 11/26/23 Did you have a dental visit in the last 12 months?: Yes Did you have a dental problem in the last 6 months where you did not have access to dental care?: No Was dental information given to patient?: Patient has dentist HPI HPI Comments History of Present Illness Details 38-year-old male presents with complaint s of an elevated heart rate between 110 and 197 while playing basketball sometimes last week. He notes palpations for a quick, two times, while at rest yesterday. No dyspnea, dizziness, chest pain, or discomfort. He notes that he recently started a carnivore diet with meat and eggs. He is concerned that he may have recently lost significant amount of weight. He lost about 20 lb in the past 10 months. [facility] Medical History (Updated 11/26/23 @ 09:22 by Diann Prabhakar CNP) [place]-Schlatter's disease Diverticulitis IBS (irritable bowel syndrome) Mood changes Lab test negative for COVID-19 virus Back pain Hx of irritable bowel syndrome Hx of renal calculi Surgical History H/O colonoscopy Hx of excision of mass Family History Father Elevated white blood cell count Leukemia Leukemia in remission Mother Medical history non-contributory Lump of breast Paternal Grandmother Dementia Maternal Grandfather Lung cancer Family/Other Asthma Social History Housing: Apartment Patient Tobacco Use Status: Current everyday Tobacco user Tobacco use type: Smokeless Tobacco Years Smoked: 13 e-Cigarette/Vaping Use: Never Used service: No Current occupational status: employed Current occupation: [employer] Cognitive needs: No Hearing needs: No Vision needs: No Questionnaire PHQ-9 Over the last 2 weeks, how often have you been bothered by any of the following problems? 1. Little interest or pleasure in doing things: several days 2. Feeling down, depressed, or hopeless: not at all 3. Trouble falling or staying asleep, or sleeping too much: not at all 4. Feeling tired or having little energy: not at all 5. Poor appetite or overeating: several days 6. Feeling bad about yourself - or that you are a failure or have let yourself or your family down: not at all 7. Trouble concentrating on things, such as reading the newspaper or watching television: not at all 8. Moving or speaking so slowly that other people could have noticed. Or the opposite - being so fidgety or restless that you have been moving around a lot more than usual: not at all 9. Thoughts that you would be better off or of hurting yourself in some way : not at all Total score: 2 Depression Screening Interpretation: Negative Depression Screening Done: Yes 44363 - PHQ-9 Billing: Yes Source: Developed by Drs. Aaron Rowe, Fabiola Argueta, Luther Russell and colleagues, with an educational felix from [employer]. Thrive Questionnaire Date Thrive assessed: 11/16/22 AUDIT C Alcohol Use Questionnaire (AUDIT-C) 1. How often do you have a drink containing alcohol?: Never Total Score: 0 Score Reviewed/Action Taken: Yes LENORA-7 AMB Questionnaire LENORA-7 Date LENORA - 7 assessed: 11/26/23 Feeling nervous, anxious, or on edge: 0 = Not at all Not being able to stop or control worryin = Not at all Worrying too much about different things: 0 = Not at all Trouble relaxin = Not at all Being so restless that it is hard to sit still: 0 = Not at all Becoming easily annoyed or irritable: 1 = Several days Feeling afraid as if something awful might happen: 0 = Not at all Total LENORA-7 score (0-4 normal; 5-9 mild; 10-14 moderate; 15-21 severe): 1 Source: Developed by Drs. Aaron Rowe, Fabiola Argueta, Luther Russell and colleagues, with an educational felix from [employer]. LENORA-7 Assessment Billing LENORA-7 Assessment Tool: LENORA-7 Assessment 15050 ACT Questionnaire In the past 4 weeks, how much of the time did your asthma keep you from getting as much done at work, school or at home?: All of the time During the past 4 weeks, how often have you had shortness of breath?: Not at all During the past 4 weeks, how often did your asthma symptoms wake you up at night or earlier than usual in the morning?: Not at all During the past 4 weeks, how often have you had to use your rescue inhaler or nebulizer medication?: 1-2 times a week How would you rate your asthma control during the past 4 weeks?: Well controlled Score: 17 Review of Systems Const Details: Const Denies chills, Denies fatigue, Denies fever(s), Denies headache(s) and Denies weakness ENT Denies dizziness and Denies headache(s) Card Denies chest pain, Denies lightheadedness, Denies dyspnea and Denies other (Palpitations) Resp Denies cough, Denies dyspnea, Denies wheezing and Denies other ( shortness of breath) GI Denies abdominal pain, Denies melena, Denies hematochezia, Denies change in bowel habits, Denies dyspepsia and Denies nausea Denies hematuria and Denies dysuria Musc Denies abnormal gait, Denies myalgias, Denies arthralgias, Denies numbness and Denies tingling Skin/Breast Denies rash, Denies unusual bruising and Denies wounds Neuro Denies abnormal gait, Denies dizziness, Denies headache(s), Denies memory loss, Denies numbness, Denies Sensory deficit (Neuro), Denies tingling and Denies weakness Psych Denies anxiety, Denies depression, Denies memory loss Endo Denies cold intolerance, Denies fatigue, Denies heat intolerance, Denies polydipsia and Denies polyuria Aller/Immun Denies wheezing Physical exam (Primary Care) Vital Signs: Last Vital Signs Temp 98.0 F 11/26/23 09:01 Pulse 66 11/26/23 09:01 Resp 16 11/26/23 09:01 BP 104/64 11/26/23 09:01 Pulse Ox 98 11/26/23 09:01 Oxygen Delivery Method Room Air 11/26/23 09:01 BMI result Body Mass Index 30.9 Tobacco/Smoking Status: Tobacco use Status Tobacco use date assessed 11/26/23 11/26/23 09:05 Patient Tobacco Use Status Current everyday Tobacco 11/26/23 09:05 Tobacco use type Smokeless Tobacco 11/26/23 09:05 e-Cigarette/Vaping Use Never Used 11/26/23 09:05 Depression Screening Interpretation: Negative Thrive Assessment: Date of Thrive Assessment Date Thrive assessed 11/16/22 11/26/23 09:05 Const Other: General: no acute distress and well developed Nutritional Appearance: well nourished Orientation/consciousness: patient oriented x3 HENMT Head: Yes normocephalic and Yes atraumatic Eyes General: appearance normal, both eyes and all related structures Pupils: Equal, round and reactive pupils present EOM: EOMs intact bilaterally Resp Effort & Inspection: normal respiratory effort Auscultation: clear to auscultation bilaterally Cardio Rate: regular rate Rhythm: regular rhythm Heart sounds: S1 normal heart sound present, S2 normal heart sound present, no gallops, no murmurs and no rubs GI Palpation (GI): No Abdominal aortic bruit present, Soft to palpation, nontender, No hepatosplenomegaly present and No Rebound tenderness present Auscultation: normal bowel sounds General: Yes no CVA tenderness Back/Spine/Pelvis Back: no CVA tenderness Cervical Spine: cervical ROM normal and No Cervical spine tenderness Thoracic/Lumbar Spine: thoraco-lumbar ROM normal, No pain with thoraco-lumbar ROM, No thoracic spinal tenderness and No lumbar spinal tenderness Extrem General: Yes normal to inspection, No edema and No calf tenderness Skin General: warm and dry. Normal skin color. Normal skin turgor Neuro General: patient oriented x3, gait normal and no focal neuro deficit Cranial nerves: Yes Equal, round and reactive pupils present Cognition (Neuro): normal cognition Gait exam (Neuro): Normal gait present Sensory Exam: No Sensory deficit (Neuro) Psych Appearance: grossly normal Affect: normal affect Attitude: cooperative Thought process: Normal thought process present Assessment and Plan Assessment & Plan (1) Tachycardia: Code(s): R00.0 - Tachycardia, unspecified Plan: Reports tachycardia episode while playing basketball last week. His heart rate was between 110 and 197. He also experienced 2 episodes of brief palpitations yesterday; no associated symptoms Heart regular rate and rhythm Informed that his tachycardia is related to exercising. Encouraged to avoid exerting himself during exercise and take breaks Follow-up with symptoms or concerns Verbalized understanding and agreed with the plan (2) Hypercholesterolemia: Code(s): E78.00 - Pure hypercholesterolemia, unspecified Plan: Recent labs reviewed with the patient; unremarkable findings except for elevated total cholesterol and LDL levels, 207 and 141 respectively. He notes that he recently started a carnivore diet with meat and eggs. Advised to limit foods high in saturated fat (meat, whole produce, and cheese) and avoid foods high in trans fat (fast foods, canned foods, restaurant foods) Routine exercise encouraged Verbalized understanding and agreed with treatment plan Coding Level of Care Code Est Pt Level 4 (89683) Complex EM visit Add On G2211 Diagnoses Tachycardia R00.0 Hypercholesterolemia E78.00 Additional Codes LENORA-7 Assessment Billing - LENORA-7 Assessment Tool: LENORA-7 Assessment [id number] ([id number])
[2023-11-26 09:01] VITALS: BP 104/64; PULSE 66; RESP 16; TEMP 36.7; O2SAT 98; BMI 30.9
== END 2023-11-26 09:22 | disposition home or self-care (01) ==
PROVIDERS: PCP Nurse Practitioner Family; Visit Provider Nurse Practitioner Family
DX: R00.0 Tachycardia, unspecified (principal); E78.00 Pure hypercholesterolemia, unspecified
CPT/HCPCS: 99214

== ENCOUNTER 2023-12-26 09:47 | Outpatient (AMB) | payer OTHER, SELFPAY ==
--- NOTE | 2023-12-26 10:02 | MHC.PC.OV ---
Vital Signs 12/26/23 10:09 Height 5 ft 10 in Weight 219 lb 8 oz BMI 31.5 BP 102/68 Blood Pressure Location Lt brachial Position Sitting Respiration 16 Pulse 81 Pulse Source Pulse Oximeter Temp 97.6 F Temp Source Oral Pulse Oximetry (%) 99 Oxygen Delivery Method Room Air Intake Visit Reasons: Annual PE Intake Note: patient here for CPE Publication Designer Required: No Allergies cat dander Allergy (Intermediate, Verified 12/26/23 10:40) Trouble Breathing dog dander Allergy (Intermediate, Verified 12/26/23 10:40) Trouble Breathing shrimp Allergy (Verified 12/26/23 10:40) Itching Medication List - Last Reconciled 12/26/23 by Diann Prabhakar CNP albuterol sulfate 90 mcg/actuation 2 puffs inhalation Q6H PRN albuterol sulfate 90 mcg/actuation (Ventolin HFA) 2 puffs inhalation Q6H PRN cetirizine (Zyrtec) 10 mg PO DAILY PRN 90 days Tobacco use date assessed: 12/26/23 Dental Screening Dental Screen Date: 12/26/23 Did you have a dental visit in the last 12 months?: Yes Did you have a dental problem in the last 6 months where you did not have access to dental care?: No Was dental information given to patient?: Patient has dentist HPI HPI Comments History of Present Illness Details 38-year-old male presents for an extended physical exam He has history hypercholesterolemia, tachycardia, and IBS He admits to taking his medications as prescribed without adverse reactions He notes that he eats and sleeps and has been exercising routinely He offers no complaints and denies acute symptoms at this time He uses zyns nicotine pouches, about 7.5 pouches daily for the past 6 months. He does not drink alcohol. He smokes 3-6 hits of cannabis daily; he has been smoking cannabis on/off for the past 23 years Last colonoscopy 02/10/2020: benign polyps. He was advised to f/u for a repeat colonoscopy in 5 years. Will refer to GI next year [facility] Medical History (Updated 12/26/23 @ 10:56 by Diann Prabhakar CNP) Joleen-Schlatter's disease Diverticulitis IBS (irritable bowel syndrome) Mood changes Lab test negative for COVID-19 virus Back pain Hx of irritable bowel syndrome Hx of renal calculi Surgical History H/O colonoscopy Hx of excision of mass Family History (Updated 12/26/23 @ 10:09 by Geovanna Stanley) Father Elevated white blood cell count Leukemia Leukemia in remission Mother Medical history non-contributory Lump of breast Paternal Grandmother Dementia Maternal Grandfather Lung cancer Family/Other Asthma Brother FH: mental illness Social History Housing: Apartment Patient Tobacco Use Status: Current everyday Tobacco user Tobacco use type: Smokeless Tobacco Years Smoked: 13 e-Cigarette/Vaping Use: Never Used Second Hand Smoke Exposure: No service: No Current occupational status: employed Current occupation: [employer] Cognitive needs: No Hearing needs: No Vision needs: No Questionnaire PHQ-9 Over the last 2 weeks, how often have you been bothered by any of the following problems? 1. Little interest or pleasure in doing things: not at all 2. Feeling down, depressed, or hopeless: not at all 3. Trouble falling or staying asleep, or sleeping too much: not at all 4. Feeling tired or having little energy: several days 5. Poor appetite or overeating: several days 6. Feeling bad about yourself - or that you are a failure or have let yourself or your family down: several days 7. Trouble concentrating on things, such as reading the newspaper or watching television: not at all 8. Moving or speaking so slowly that other people could have noticed. Or the opposite - being so fidgety or restless that you have been moving around a lot more than usual: not at all 9. Thoughts that you would be better off or of hurting yourself in some way: not at all Total score: 3 Depression Screening Interpretation: Negative Depression Screening Done: Yes 73003 - PHQ-9 Billing: Yes Source: Developed by Drs. Aaron Rowe, Fabiola Argueta, Luther Russell and colleagues, with an educational felix from [employer]. Thrive Questionnaire Date Thrive assessed: 12/26/23 I am a: Patient What is your living situation today?: I have a steady place to live Within the past 12 months, did the food you bought not last and you didn't have the money to get more?: Never true Within the past 12 months, did you worry whether your food would run out before you got money to buy more?: Never true Do you have trouble paying for medicines?: No Do you have trouble getting transportation to medical appointments?: No Do you have trouble paying your heating and electricity bill?: No Do you have trouble taking care of your child, family member or friend?: No Do you have trouble with day-to-day activities such as bathing, preparing meals, shopping, managing finances, etc.?: No Are you currently unemployed and looking for a job?: No Are you interested in more education?: No Please select the resources that you would like help with: None Currently or been in a relationship where the following occur: No concerns reported THRIVE Score: 0 AUDIT C Alcohol Use Questionnaire (AUDIT-C) 1. How often do you have a drink containing alcohol?: Never Total Score: 0 Score Reviewed/Action Taken: Yes LENORA-7 AMB Questionnaire LENORA-7 Date LENORA - 7 assessed: 12/26/23 Feeling nervous, anxious, or on edge: 0 = Not at all Not being able to stop or control worryin = Not at all Worrying too much about different things: 0 = Not at all Trouble relaxin = Not at all Being so restless that it is hard to sit still: 1 = Several days Becoming easily annoyed or irritable: 1 = Several days Feeling afraid as if something awful might happen: 0 = Not at all Total LENORA-7 score (0-4 normal; 5-9 mild; 10-14 moderate; 15-21 severe): 2 Source: Developed by Drs. Aaron Rowe, Fabiola Argueta, Luther Russell and colleagues, with an educational felix from [employer]. LENORA-7 Assessment Billing LENORA-7 Assessment Tool: LENORA-7 Assessment 20953 Review of Systems Const Details: Denies chills, Denies fatigue, Denies fever(s), Denies headache(s) and Denies weakness HEENT Denies change in vision, Denies dizziness, Denies headache(s), Denies hearing loss, Denies nasal congestion, Denies sinus pain, Denies sinus pressure and Denies sore throat Card Denies chest pain, Denies lightheadedness, Denies dyspnea and Denies other (palpitations) Resp Denies cough, Denies dyspnea and Denies wheezing GI Denies abdominal pain, Denies melena, Denies hematochezia, Denies change in bowel habits, Denies dyspepsia and Denies nausea Denies hematuria and Denies dysuria Musc Denies abnormal gait, Denies myalgias, Denies arthralgias, Denies numbness and Denies tingling Skin/Breast Denies rash, Denies unusual bruising and Denies wounds Neuro Denies abnormal gait, Denies dizziness, Denies headache(s), Denies memory loss, Denies numbness, Denies Sensory deficit (Neuro), Denies tingling and Denies weakness Psych Denies anxiety, Denies depression and Denies memory loss Endo Denies cold intolerance, Denies fatigue, Denies heat intolerance, Denies polydipsia and Denies polyuria Pal/Lymph Denies easy bleeding and Denies easy bruising Aller/Immun Denies wheezing Physical exam (Primary Care) Vital Signs: Last Vital Signs Temp 97.6 F 12/26/23 10:09 Pulse 81 12/26/23 10:09 Resp 16 12/26/23 10:09 BP 102/68 12/26/23 10:09 Pulse Ox 99 12/26/23 10:09 Oxygen Delivery Method Room Air 12/26/23 10:09 BMI result Body Mass Index 31.5 Tobacco/Smoking Status: Tobacco use Status Tobacco use date assessed 12/26/23 12/26/23 10:12 Patient Tobacco Use Status Current everyday Tobacco 12/26/23 10:12 Tobacco use type Smokeless Tobacco 12/26/23 10:04 e-Cigarette/Vaping Use Never Used 12/26/23 10:04 PHQ-9: PHQ-9 Score PHQ-9: Total score 3 12/26/23 10:43 Depression Screening Interpretation: Negative Thrive Assessment: Date of Thrive Assessment Date Thrive assessed 12/26/23 12/26/23 10:15 Currently or been in a relationship where the following occur: No concerns reported Const Other: General: no acute distress, well developed, alert and awake Nutritional Appearance: well nourished Orientation/consciousness: patient oriented x3 HENMT Head: Yes normocephalic and Yes atraumatic Ears: hearing grossly normal bilaterally and TM's normal bilaterally General nose exam: Normal external nose present and Normal nares present Mouth: Normal oral and palatal mucosa present and moist mucous membranes Teeth and gingiva: dentition normal Throat: Yes oropharynx normal Eyes Pupils: Equal, round and reactive pupils present and Pupil accommodation reflex normal EOM: EOMs intact bilaterally Neck Neck: Yes normal visual inspection, Yes no lymphadenopathy and Yes trachea midline Thyroid: Thyroid normal Carotids: no bruits Lymphatic: no lymphadenopathy noted Chest Chest palpation & inspection: normal inspection of the chest Resp Effort & Inspection: normal respiratory effort Auscultation: clear to auscultation bilaterally Cardio Rate: regular rate Rhythm: regular rhythm Heart sounds: S1 normal heart sound present, S2 normal heart sound present, no gallops, no murmurs and no rubs Bruits: no abdominal aortic bruits and no carotid bruits GI Palpation (GI): No Abdominal aortic bruit present, Soft to palpation, nontender, No hepatosplenomegaly present and No Rebound tenderness present Auscultation: normal bowel sounds General: Yes no CVA tenderness Back/Spine/Pelvis Back: no CVA tenderness Cervical Spine: cervical ROM normal and No Cervical spine tenderness Thoracic/Lumbar Spine: thoraco-lumbar ROM normal, No pain with thoraco-lumbar ROM, No thoracic spinal tenderness and No lumbar spinal tenderness Skin General: warm and dry. Normal skin color. Normal skin turgor Lesions: no lesions Rashes: no rashes Trauma: no lacerations or abrasions Wounds: no wounds Nails: normal Neuro General: patient oriented x3, gait normal and CN's II-XI intact bilaterally Cranial nerves: Yes Equal, round and reactive pupils present Cognition (Neuro): normal cognition Gait exam (Neuro): Normal gait present Motor exam (neuro): 5/5 motor strength present throughout Sensory Exam: No Sensory deficit (Neuro) Deep tendon reflexes (DTR's): Right patellar reflex intensity grade: 2+ and Left patellar reflex intensity grade: 2+ Extrem General: Yes normal to inspection, No edema and No calf tenderness Psych Appearance: grossly normal Affect: normal affect Attitude: cooperative Thought process: Normal thought process present Assessment and Plan Assessment & Plan (1) Normal physical examination, routine: Code(s): Z00.00 - Encounter for general adult medical examination without abnormal findings Plan: No significant physical restrictions or limitations noted Continue current treatment regimen Healthy diet and routine exercise encouraged Follow-up for an extended physical exam in a year from today or return sooner with symptoms or concerns Verbalized understanding and agreed with the treatment plan (2) Nicotine dependence: Code(s): F17.200 - Nicotine dependence, unspecified, uncomplicated Plan: He uses zyns nicotine pouches, about 7.5 pouches daily for the past 6 months Instructed on the health risks and complications of nicotine use and encouraged to stop using nicotine. He may contact his PCP if he needs medication treatment such as nicotine patch. Verbalized understanding and agreed with treatment plan Coding Level of Care Code Est Pt Prev Care 18-39y(63541) Diagnoses Normal physical examination, routine Z00.00 Nicotine dependence F17.200 Additional Codes LENORA-7 Assessment Billing - LENORA-7 Assessment Tool: LENORA-7 Assessment [id number] ([id number])
[2023-12-26 10:09] VITALS: BP 102/68; PULSE 81; RESP 16; TEMP 36.4; O2SAT 99; BMI 31.5
== END 2023-12-26 10:58 | disposition home or self-care (01) ==
PROVIDERS: PCP Nurse Practitioner Family; Visit Provider Nurse Practitioner Family
DX: Z00.00 Encounter for general adult medical examination without abnormal findings (principal); F17.200 Nicotine dependence, unspecified, uncomplicated
CPT/HCPCS: 99395

== ENCOUNTER 2024-03-10 11:15 | Outpatient (AMB) | payer OTHER, SELFPAY ==
--- NOTE | 2024-03-10 12:25 | AM.OFFWIN_ITS ---
Intake Vital Signs 3 03/10/24 12:26 Height 5 ft 10 in Weight 218 lb BMI 31.3 BP 124/80 Blood Pressure Location Lt brachial Position Sitting Pulse 72 Pulse Source Pulse Oximeter Pulse Oximetry (%) 98 Oxygen Delivery Method Room Air Intake Visit Reasons: EP ? stiches on LT ear Intake Note: Patient here for cut on left ear that happened at work. Patient Tobacco Use Status: Current everyday Tobacco user Allergies cat dander Allergy (Intermediate, Verified 03/10/24 12:27) Trouble Breathing dog dander Allergy (Intermediate, Verified 03/10/24 12:27) Trouble Breathing shrimp Allergy (Verified 03/10/24 12:27) Itching Do you need a note to return to daycare/school/sports/work: No HPI HPI Comments 2 History of Present Illness0 Details Patient is a 38-year-old male complaining of a cut to his earlobe, behind his left ear. He states it happened 2 hours prior to arrival when he caught his ear on a metal mailbox at work. He works for the [employer]. States that the cleaned it out with a alcohol wipe and then put some gauze on it and he came straight to this clinic. [facility] Medical History (Updated 03/10/24 @ 13:25 by Lakeisha Escobar PA-C) Joleen-Schlatter's disease Diverticulitis IBS (irritable bowel syndrome) Mood changes Lab test negative for COVID-19 virus Back pain Hx of irritable bowel syndrome Hx of renal calculi Surgical History H/O colonoscopy Hx of excision of mass Family History (Updated 12/26/23 @ 10:09 by Geovanna Stanley MA) Father Elevated white blood cell count Leukemia Leukemia in remission Mother Medical history non-contributory Lump of breast Paternal Grandmother Dementia Maternal Grandfather Lung cancer Family/Other Asthma Brother FH: mental illness Social History Housing: Apartment Patient Tobacco Use Status: Current everyday Tobacco user Tobacco use type: Smokeless Tobacco Years Smoked: 13 e-Cigarette/Vaping Use: Never Used Second Hand Smoke Exposure: No service: No Current occupational status: employed Current occupation: [employer] Cognitive needs: No Hearing needs: No Vision needs: No Review of Systems Const All systems reviewed & are unremarkable except as noted in HPI and below Physical Exam Vital Signs: Last Vital Signs Pulse 72 03/10/24 12:26 BP 124/80 03/10/24 12:26 Pulse Ox 98 03/10/24 12:26 Oxygen Delivery Method Room Air 03/10/24 12:26 BMI result Body Mass Index 31.3 Const General: cooperative, healthy appearing, comfortable, no acute distress and well developed Orientation/consciousness: patient oriented x3 Limitations: no limitations HEENT Head: Yes normal to inspection Head images: 2 1. 0.75cm laceration, flap, superficial, not involving cartilage Ears: hearing grossly normal bilaterally Neck Neck: Yes normal visual inspection and Yes supple Neuro General: patient oriented x3 Office Procedures Laceration Repair Procedure Location: left ear EMLA: 1% Lidocaine Text: After discussion of risk and benefits, written informed consent was obtained. The area was cleaned, prepped, and draped using sterile technique. The wound was debrided of any foreign material or devitalized tissue. Wound edges were approximated and closed using 2 sutures, 5.0 monofilament nylon. Standard wound dressing was applied. Wound care instructions were given. The patient tolerated the procedure well. The patient was instructed to return for increased redness or red streaking, pain, swelling, pus, fevers, chills, or any other signs or symptoms of infection or worsening. DAC Patient was instructed to return for suture removal in 7-10 days. Immunizations Boostrix Tdap 2.5 Lf unit-8 mcg-5 Lf/0.5 mL intramuscular syringe Performing Provider: Lakeisha Escobar PA-C Performing Location: [facility] Administered by: CHIDI Barreto on 03/10/24 13:27 2 Dose Route Admin Location Dispensed Lot Number Expiration Date NDC Financial Sales Assistant 0.5 mL IM Left Deltoid 0.5 mL [id number] 01/18/25 38047-001-82 [employer] 2 VIS Given Date VIS Provided VIS Publication Date 03/10/24 Single Vaccine 20 Eligibility Eligibility Date Funding Source Not [facility] Eligible 03/10/24 Private Assessment & Plan Assessment & Plan (1) Ear lobe laceration: Code(s): S01.319A - Laceration without foreign body of unspecified ear, initial encounter Qualifiers: Encounter type: initial encounter Laterality: left Qualified Code(s): S01.312A - Laceration without foreign body of left ear, initial encounter Plan: Repaired with 3 sutures, recommended come back in 7 days for removal, gave red flag warning signs of infection and when to return to the clinic prior to that. Recommending showering is normal but not scrubbing the area and not wearing baseball hats for the next 7-10 days. Gave patient Tdap. Plan see above Orders: Orders 2 TDaP Immunization Today S01.319A - Laceration without foreign body of unspecified ear, initial encounter Medications: New 2 Boostrix Tdap (diphth,pertus(acell),tetanus) 0.5 mL IM ONCE 0.5 mL 0RF NS S01.319A - Laceration without foreign body of unspecified ear, initial encounter Coding Level of Care Code Est Pt Level 4 (05636) Diagnoses Laceration of left earlobe, initial encounter S01.312A Encounter type: initial encounter Laterality: left
[2024-03-10 12:26] VITALS: BP 124/80; PULSE 72; O2SAT 98; BMI 31.3
== END 2024-03-10 13:34 | disposition home or self-care (01) ==
PROVIDERS: PCP Nurse Practitioner Family; Visit Provider Physician Assistant
DX: S01.319A Laceration without foreign body of unspecified ear, initial encounter (principal); S01.312A Laceration without foreign body of left ear, initial encounter

== ENCOUNTER → 2024-03-10 11:15 | Outpatient (BNVA) | payer OTHER, SELFPAY | PROVIDERS: PCP Nurse Practitioner Family | DX: S01.312A Laceration without foreign body of left ear, initial encounter (principal); W26.8XXA Contact with other sharp object(s), not elsewhere classified, initial encounter; Y93.9 Activity, unspecified; Y92.9 Unspecified place or not applicable; Y99.0 Civilian activity done for income or pay; Z23 Encounter for immunization | CPT/HCPCS: 12011; 90471; 90715; 99212 ==

== ENCOUNTER 2024-03-18 09:09 | Outpatient (AMB) | payer OTHER, SELFPAY ==
--- NOTE | 2024-03-18 09:39 | AM.OFFWIN_ITS ---
Intake Vital Signs 03/18/24 09:41 Height 5 ft 10 in Weight 218 lb BMI 31.3 BP 120/80 Blood Pressure Location Rt brachial Position Sitting Pulse 76 Pulse Source Pulse Oximeter Pulse Oximetry (%) 98 Oxygen Delivery Method Room Air Intake Visit Reasons: EP-stitches removal Intake Note: Patient here to have stitches removed that were placed on 03/10. Patient Tobacco Use Status: Current everyday Tobacco user Allergies cat dander Allergy (Intermediate, Verified 03/18/24 09:41) Trouble Breathing dog dander Allergy (Intermediate, Verified 03/18/24 09:41) Trouble Breathing shrimp Allergy (Verified 03/18/24 09:41) Itching Do you need a note to return to daycare/school/sports/work: No HPI HPI Comments History of Present Illness Details Patient is a 38-year-old male here for removal of 3 sutures that were placed behind his left ear 8 days ago in his clinic. He denies any pain to the area, he states there has been no weeping of any fluid. [facility] Medical History (Updated 03/18/24 @ 10:17 by Lakeisha Escobar PA-C) Joleen-Schlatter's disease Diverticulitis IBS (irritable bowel syndrome) Mood changes Lab test negative for COVID-19 virus Back pain Hx of irritable bowel syndrome Hx of renal calculi Surgical History H/O colonoscopy Hx of excision of mass Family History (Updated 12/26/23 @ 10:09 by Geovanna Stanley MA) Father Elevated white blood cell count Leukemia Leukemia in remission Mother Medical history non-contributory Lump of breast Paternal Grandmother Dementia Maternal Grandfather Lung cancer Family/Other Asthma Brother FH: mental illness Social History Housing: Apartment Patient Tobacco Use Status: Current everyday Tobacco user Tobacco use type: Smokeless Tobacco Years Smoked: 13 e-Cigarette/Vaping Use: Never Used Second Hand Smoke Exposure: No service: No Current occupational status: employed Current occupation: [employer] Cognitive needs: No Hearing needs: No Vision needs: No Review of Systems Const All systems reviewed & are unremarkable except as noted in HPI and below Physical Exam Vital Signs: Last Vital Signs Pulse 76 03/18/24 09:41 BP 120/80 03/18/24 09:41 Pulse Ox 98 03/18/24 09:41 Oxygen Delivery Method Room Air 03/18/24 09:41 BMI result Body Mass Index 31.3 Const General: cooperative, healthy appearing, comfortable, no acute distress and well developed Orientation/consciousness: patient oriented x3 Limitations: no limitations HEENT Head: Yes normal to inspection Ears: hearing grossly normal bilaterally Neck Neck: Yes normal visual inspection and Yes supple Skin Other: Left posterior earlobe: Three sutures clean dry intact, wound has healed well, no signs of infection noted Neuro General: patient oriented x3 Assessment & Plan Assessment & Plan (1) Visit for suture removal: Code(s): Z48.02 - Encounter for removal of sutures Plan: Removed 3 sutures, applied bacitracin. Recommended keeping the wound clean and dry and applying bacitracin twice daily for the next few days. Coding Level of Care Code Est Pt Level 3 (42348) Diagnoses Visit for suture removal Z48.02
[2024-03-18 09:41] VITALS: BP 120/80; PULSE 76; O2SAT 98; BMI 31.3
== END 2024-03-18 12:28 | disposition home or self-care (01) ==
PROVIDERS: PCP Nurse Practitioner Family; Visit Provider Physician Assistant
DX: Z48.02 Encounter for removal of sutures (principal)

== ENCOUNTER → 2024-03-18 09:09 | Outpatient (BNVA) | payer OTHER, SELFPAY | PROVIDERS: PCP Nurse Practitioner Family; Visit Provider Physician Assistant | DX: Z48.02 Encounter for removal of sutures (principal) | CPT/HCPCS: 99212 ==

== ENCOUNTER 2024-09-26 14:03 | Outpatient (AMB) | payer OTHER, SELFPAY ==
--- OUTSIDE RECORDS SUMMARY | 2024-09-26 14:06 | XMS_ITS ---
Author Name [facility] Organization Unknown Care Team Organization Name Specialty Phone Email Start Date End Da te [employer] 02/05/2022 0 12/10/2023
[2024-09-26 14:14] VITALS: BP 116/77; PULSE 86; BMI 31.3
--- NOTE | 2024-09-26 14:14 | A.OFFVIS_ITS ---
Vital Signs 09/26/24 14:14 Height 5 ft 10 in Weight 218 lb BMI 31.3 BP 116/77 Blood Pressure Location Lt brachial Position Sitting Pulse 86 Intake Visit Reasons: colo screen jm pt Intake Note: Flo presents in the office as a colonoscopy screening. CC: States that he is having irregular BM - states he is on the 5 year plan for the colonoscopy. [employer] Machine Tender Required: No Allergies cat dander Allergy (Intermediate, Verified 09/26/24 14:16) Trouble Breathing dog dander Allergy (Intermediate, Verified 09/26/24 14:16) Trouble Breathing shrimp Allergy (Verified 09/26/24 14:16) Itching Medication List - Last Reconciled 09/26/24 by Aarti Child CNP albuterol sulfate 90 mcg/actuation 2 puffs inhalation Q6H PRN albuterol sulfate 90 mcg/actuation (Ventolin HFA) 2 puffs inhalation Q6H PRN apple cider vinegar mg PO bisacodyl 5 mg PO ONCE 1 day cetirizine (Zyrtec) 10 mg PO DAILY PRN 90 days cholecalciferol (vitamin D3) 10 mcg PO DAILY magnesium glycinate 100 mg PO DAILY omeprazole 20 mg PO DAILY polyethylene glycol 3350 (Miralax) 238 grams PO ONCE turmeric mg PO vitamin K2 45 mcg PO DAILY zinc acetate (Galzin) 25 mg PO DAILY HPI HPI colo screen pt: Details: Patient is a 39-year-old male with PMH of nicotine dependence, hyperlipidemia and diverticulosis. Last visit with GIO Butler 01/26/2020 for follow-up after colonoscopy. Patient presents for polyp surveillance colonoscopy pre screening. last colonoscopy 2019, next due now. Reports history of irritable bowel type symptoms, not consistent, and notes that diet often impacts bowel pattern; has been generally healthier recently. Experiences occasional constipation with periods of no BM for 1-2 days, at times requiring magnesium citrate tablets on an as-needed basis, averaging four to five uses per month, which relieves symptoms. Shares stools occasionally appear darker but attributes this to specific foods (e.g., Oreos). Reports one episode of diverticulitis flare around 2021, managed with antibiotics, no recurrences since. Avoids seeds due to abdominal pain triggered after ingestion and prevent reoccurrence. Reports polyuria, particularly nocturia with awakening every night to void, and decreased appetite. Denies increased thirst. Spouse has type 1 DM, checks patient?s blood sugars regularly, all within normal limits. Also reports normal urinalysis per home checks and no hematuria. Recently, noted episodes of wheezing and shortness of breath, initially treated as allergy/asthma with inhaler. However, reports most relief after a 2-week course of omeprazole trial. No diagnosed asthma; notes prior negative spirometry at an outside facility ([facility]). Denies consistent daytime fatigue but occasionally wakes up unrefreshed. Reports spouse has observed episodes of gasping for air during sleep, these episodes are not frequent but have occurred in the past. Reports prior home sleep study ~3 years ago reported as normal, but unable to confirm results. Patient denies: fever/chills, n/v, appetite changes, pyrosis, regurgitation,dysphasia, unintentional wt loss, ab pain, or melena/hematochezia. Social History - Diet: Regular intake of poultry, fruits, vegetables, hamburger; occasional carnivore diet; avoids seeds/nuts due to GI symptoms; occasional periods of prolonged fasting (up to 5 days in past, no longer practices extreme fasting). -Hydration: daily intake of 4-5 bottles of water at work and an additional 32 oz at home. - Alcohol: None (intolerant; negative experiences) - Tobacco: Denies cigarettes; past vaping (quit); ongoing frequent use of ni cotine pouches (Zyn). Reports good dental/oral care. 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 - family hx as below -denies personal hx of CA -tolerated anesthesia in the past without difficulty. [facility] Medical History (Updated 09/26/24 @ 17:22 by Aarti Child CNP) Nocturnal polyuria Paroxysmal nocturnal dyspnea Diverticulosis Claverack-Schlatter's disease Diverticulitis IBS (irritable bowel syndrome) Mood changes Lab test negative for COVID-19 virus Back pain Hx of irritable bowel syndrome Hx of renal calculi Surgical History H/O colonoscopy Hx of excision of mass Family History Father Elevated white blood cell count Leukemia Leukemia in remission Mother Medical history non-contributory Lump of breast Paternal Grandmother Dementia Maternal Grandfather Lung cancer Family/Other Asthma Brother FH: mental illness Social History Housing: Apartment Patient Tobacco Use Status: Current everyday Tobacco user Tobacco use type: Smokeless Tobacco Years Smoked: 13 e-Cigarette/Vaping Use: Never Used Second Hand Smoke Exposure: No service: No Current occupational status: employed Current occupation: [employer] Cognitive needs: No Hearing needs: No Vision needs: No Review of Systems Const Reports as per HPI ENT Reports as per HPI Card Reports as per HPI Resp Reports as per HPI GI Reports as per HPI Reports as per HPI Physical Exam Vital Signs: BMI result Body Mass Index 31.3 Const General: healthy appearing, no acute distress and well developed Nutritional Appearance: well nourished Orientation/consciousness: patient oriented x3 HEENT Head: Yes normal to inspection, Yes normocephalic and Yes atraumatic Face and sinus: Yes normal facial exam Eyes General: appearance normal, both eyes and all related structures Neck Neck: Yes normal visual inspection Resp Effort & Inspection: normal respiratory effort, able to speak in complete sentences, no tracheal deviation and symmetric chest movement Auscultation: diminished lung sounds (clear to diminished, primarily to bases ) Cardio Jugular venous distension: no JVD Rate: regular rate Rhythm: regular rhythm Heart sounds: S1 normal heart sound present, S2 normal heart sound present, no gallops and no murmurs GI Inspection: Yes normal to inspection, No distended and Yes obesity Palpation (GI): Soft to palpation, not firm, nontender and No hepatosplenomegaly present Auscultation: normal bowel sounds Neuro General: patient oriented x3 Gait exam (Neuro): Normal gait present Psych Appearance: grossly normal Mental Status: mental status grossly normal Speech and movement: Normal speech and movement present Affect: normal affect Attitude: cooperative Thought process: Normal thought process present Thought content: Normal thought content present Insight: Good insight present (Psych) Judgement: Good judgement present (Psych) Results Reviewed Results Reviewed: Results: Date of Service: 02/10/20 SURGEON: Ashley Elise MD PROCEDURE PERFORMED: Colonoscopy with biopsies, multiple (3 polyps excisional x2, cold snare with polypectomy with hexagonal snare x1, residual trimming with biopsy forceps), resolution clip on biopsy site in the terminal ileum. ESTIMATED BLOOD LOSS: Less than 10 mL. COMPLICATIONS: No complications. SPECIMENS: Specimens removed: 1. Distal transverse colon. 2. Terminal ileal. 3. Right colon biopsies. 4. Proximal transverse colon polyp, ascending colon polyp, use of hexagonal snare and trimming with cold biopsy forceps. 5. Rectosigmoid biopsy. PREOPERATIVE DIAGNOSES: 34-year-old male with episodic rectal bleeding, increased frequency of stool. The patient has major concerns about having underlying inflammatory bowel disease or perhaps even malignancy. POSTOPERATIVE DIAGNOSES: Colonic polyps, Pandiverticulosis, 1+ Internal Hemorrhoids. RETAIL DEPARTMENT SUPERVISOR: Dr. Elise. FINDINGS: Digital rectal exam revealed prostate to be unremarkable. Video colonoscope was introduced without difficulty. It was navigated into the rectosigmoid, sigmoid area. Scope slowly advanced through descending, transverse, ascending colon down into the cecum. I was able to intubate the terminal ileum for a distance of about 6 to 8 cm. Villi had normal appearance. Biopsy was obtained. COLO Prep was good, however, there was a residue of bilious fluid coating in the colon that required a moderate amount of flushing and suctioning. Fortunately, no fibrous residue was present. There were diverticula seen both right and left-sided. Prior to the terminal ileal biopsy, a polyp had been identified in the distal transverse colon, this was removed initially as specimen A. Polyp was removed excisionally with cold biopsy forceps. Due to oozing on the biopsy site in the terminal ileum, a Resolution Clip was placed on area of the biopsy site. Other specimens were removed as outlined under specimens. As I came down into the rectum, retroflexed view showed no outstanding lesions and on withdrawing the scope, the anorectal verge was clear. There were 1+ internal hemorrhoids noted. PLAN: The diminutive polyps that appear to be adenomatous. He will be on a screening pattern most likely of 5 years. Further management will be adjusted by the histology on the random biopsies. Clinical history is in keeping with irritable bowel syndrome especially in the setting of pandiverticulosis. Note, the patient said that he did not tolerate using the dicyclomine previously prescribed. It made him nauseous. He will be re-seen in the office postprocedure for further evaluation and management. GRAFT OR IMPLANTS: No grafts or implants (resolution clip was placed). Pathology Collected: 02/10/20 MR #: [id number] Received: 02/10/20 Diagnosis A. Colon, distal transverse, polypectomy: Hyperplastic mucosal polyp. B. Terminal ileum, biopsy: Terminal ileal mucosa within normal limits. C. Colon, right, biopsy: Colonic mucosa within normal limits. D. Colon, proximal transverse, polypectomy: Fragments of serrated polyp. See comment. E. Colon, ascending, polypectomy: Fragments of tubular adenoma; no high grade dysplasia or carcinoma seen. F. Colon, rectosigmoid, biopsy: Colonic mucosa within normal limits. COMMENT: The polyp in part D has some features of a sessile serrated polyp. Clinical History Pre-Op Dx: Rectal bleeding, frequent stools Post-Op Dx: Colonic polyps, diverticulosis, 1+ internal hemorrhoid Assessment & Plan Assessment & Plan (1) Tubular adenoma: Comment: 02/10/20 colonoscopy complete with good prep -tubular adenoma ascending colon, transverse colon serrated sessile (size unknown),Pandiverticulosis, 1+ Internal Hemorrhoids. Code(s): D36.9 - Benign neoplasm, unspecified site Category: Medical Plan: Due for polyp surveillance colonoscopy Diagnostic Tests: Prescriptions for laxative tablets and Miralax sent to pharmacy; instructions for Gatorade purchase and clear liquid diet given. Medications: - understands to hold any NSAIDs 7 days prior to procedure. - Use Tylenol if needed for pain. Patient educated on procedure preparation, including avoiding certain foods and ensuring clear liquid intake. Advised on necessity for ride post-procedure due to sedation. (2) Diverticulosis: Code(s): K57.90 - Diverticulosis of intestine, part unspecified, without perforation or abscess without bleeding Category: Medical Plan: Intermittent constipation, dietary triggers, prior diverticulitis managed with antibiotics (? 2021), no recurrence - Medications: - Magnesium citrate oral PRN for constipation (as needed) - Continue supportive measures - Lifestyle Modifications: - High-fiber diet; goal is regular, soft stool; avoid seeds if symptomatic; maintain adequate hydration - Minimize highly processed foods; steady intake of fruits/vegetables (3) Paroxysmal nocturnal dyspnea: Code(s): R06.00 - Dyspnea, unspecified Category: Medical Plan: Respiratory symptoms (wheezing, SOB) resolved with omeprazole; no classic GERD symptoms (burning, regurg, dysphagia) Atypical presentation; omeprazole response suggests reflux, but workup for inflammatory pathology warranted. Inconclusive previous sleep testing, ongoing (albeit mild) symptoms, and snoring/gasping episodes. Also with vaping/marijuana risk and respiratory exam mildly abnormal will proceed with imaging as below. - Additional Tests: - Upper endoscopy ordered (to be combined with colonoscopy) -Home sleep study ordered -Chest X-ray ordered for baseline - Medications: - Started Omeprazole 20mg oral daily (empty stomach, 30+ min before meals) - Lifestyle Modifications: - Minimize caffeine, acidic/spicy foods as triggers - Eat smaller, frequent meals; remain upright >2hr post meal - Minimize late-night eating; avoid eating then reclining -Maintain healthy weight (4) Nocturnal polyuria: Code(s): R35.81 - Nocturnal polyuria Category: Medical Plan: encourage PCP/urology f/u, possible BPH/prostate workup, consider urinalysis and PSA - Additional Tests: - PCP to order urine studies, consider prostate evaluation - Lifestyle Modifications: - Continue hydration; avoid excessive evening fluid intake to reduce nocturia - Monitor for hematuria, new symptoms - Follow-Up: - As directed by PCP Plan Pt informed that only abnormal results will be communicated; ?no news is good news.? Results available via portal or by contacting office. Follow up after endoscopy or sooner as needed. Time: I spent a total of 50 minutes on the date of encounter which includes: Preparing to see the patient (reviewed previous documentation, test results and medical history) Performing a medically appropriate exam and/or evaluation Ordering medications, tests, and procedures Documenting clinical information in the health record Orders: Orders XR chest 2V Today R06.00 - Dyspnea, unspecified RT home sleep study Today R06.00 - Dyspnea, unspecified Medications: New polyethylene glycol 3350 (Miralax) per colonoscopy prep instructions 238 grams PO ONCE 238 grams 0RF bisacodyl Take four tablets once for 1 day per colonoscopy instructions 5 mg PO ONCE 1 day 4 tabs 0RF omeprazole 20 mg PO DAILY 90 caps 1RF Coding Level of Care Code New Pt New Pt Level 5 (94381) Patient Type New Diagnoses Tubular adenoma D36.9 Diverticulosis K57.90 Paroxysmal nocturnal dyspnea R06.00 Nocturnal polyuria R35.81
== END 2024-09-26 15:03 | disposition home or self-care (01) ==
PROVIDERS: PCP Nurse Practitioner Family; Visit Provider Nurse Practitioner Family
DX: Z01.818 Encounter for other preprocedural examination (principal); Z12.11 Encounter for screening for malignant neoplasm of colon; Z86.0101 Personal history of adenomatous and serrated colon polyps; K57.90 Diverticulosis of intestine, part unspecified, without perforation or abscess without bleeding; R06.00 Dyspnea, unspecified; R35.81 Nocturnal polyuria
CPT/HCPCS: 99202

== ENCOUNTER → 2024-09-26 14:03 | Outpatient (BNVA) | payer OTHER, SELFPAY | PROVIDERS: PCP Nurse Practitioner Family; Visit Provider Nurse Practitioner Family ==

== ENCOUNTER → 2024-12-10 09:53 | Outpatient (REF) | payer OTHER, SELFPAY ==
--- OUTSIDE RECORDS SUMMARY | 2024-12-10 10:43 | XMS_ITS | Clinical Summary ---
Author Organization [facility] it Address [address] [place] [address] Care Team Providers Care Staff Pharmacist Hospital Name Role Phone Rigo Paez MD Primary Care Provider Allergies Active Allergy Reactions Criticality Noted Date Comments Cat Dander 07/04/2007 Stuffy nose and watery eyes Medications albuterol HFA (PROAIR HFA ; PROVENTIL HFA ; VENTOLIN HFA) 90 mcg/actuation inhaler Inhale 2 Puffs into the lungs every 4 hours as needed for Cough or Wheezing. 08/11/2022 Active fluticasone HFA (FLOVENT HFA) 110 mcg/actuation inhaler Inhale 1 Puff into the lungs 2 times daily. 02/24/2022 Active Active Problems Problem Noted Date Diagnosed Date Morbid obesity ([facility] V24, [facility] V28) 2013 Overview (04/11/2024): BMI 40.03 on 02/07/13. 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 Dermatophytosis 07/04/2007 Overview (04/11/2024): Tinea pedis Immunizations Name Administration Dates Next Due H1N1 Inj Preservative Free 05/12/2009 Influenza trivalent, 0.5mL, preservative free (Fluarix; FluLaval; Fluzone) ages 6mo and older (Afluria) 3 years and older 05/12/2009 Tdap Tetanus diptheria acell ular pertussis (Boostrix; Adacel) 7yo and older 07/04/2007 Surgical History Surgery Date Site/Laterality Comments MULTIPLE TOOTH EXTRACTIONS PROCEDURE: HISTORICAL DENTAL EXTRACTION SKIN BIOPSY PROCEDURE: BIOPSY OF SKIN LESION; COMMENT: mole removal Medical History Medical History Date Comments Dermatophytosis 07/04/2007 DX:Dermatophytos is; COMMENT: Tinea pedis 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 DX:Congenital n evus; COMMENT: Pediatric records indicate congenital nevus left flank Hyperlipidemia 08/08/2012 DX:Hyperlipidemi a Family History Medical History Relation Name Comments Other: ulcer disease Father Lung cancer Maternal Grandfather d Diabetes Maternal Grandmother dementi a Other: Obesity Mother Blindness Neg Hx Cataracts Neg Hx Glaucoma Neg Hx Macular degeneration Neg Hx Strabismus Neg Hx Relation Name Status Comments Father Maternal Grandfather Maternal Grandmother Mother Social History Tobacco Use Types Packs/Day Years Used Date Smoking Tobacco: Every Day Cigarettes Last attempted to quit: 05/08/2015 Smokeless Tobacco: Never Alcohol Use Standard Drinks/Week Comments No 0 (1 standard drink = 0.6 oz pur e alcohol) Sex and Gender Information Value Date Recorded Sex Assigned at Not on file Legal Sex Male 5:36 PM EST Gender Identity Not on file Sexual Orientation Not on file Obstetrics History Last Filed Vital Signs Vital Sign Reading Time Taken Comments Blood Pressure 114/78 02/24/2022 11:02 AM EDT Pulse 82 02/24/2022 11:02 AM EDT Temperature - - Respiratory Rate - - Oxygen Saturation - - Inhaled Oxygen Concentration - - Weight 103 kg (228 lb) 03/27/2022 3:06 PM EST Height 180.3 cm (5' 11 ) 03/27/2022 3:06 PM EST Body Mass Index 31.8 03/27/2022 3:06 PM EST Plan of Treatment Health Maintenance Due Date Last Done Comments Hepatitis B Vaccines (1 of 3 - 19+ 3-dose series) 2004 Pneumococcal Vaccine: Pediatrics (0 to 5 Years) and At-Risk Patients (6 to 49 Years) (1 of 2 - PCV) 2004 DTaP,Tdap,and Td Vaccines (2 - Td or Tdap) 07/03/2017 07/04/2007 Cholesterol Screening (Lipid Panel) 03/25/2022 07/17/2014 HIV Screening 03/25/2022 Hepatitis C Screening 03/25/2022 Social Influencers of Health Screening 03/25/2022 COVID-19 Vaccine (3 - 2023-2 5 season) 2023 08/18/2020, 07/28/2020 Depression Screening 04/23/2024 Influenza Vaccine (#1) 2024 0, 05/12/2009 HIB Vaccines Aged Out No longer eligi ble based on patient's age to complete this topic HPV Vaccines Aged Out No longer eligi ble based on patient's age to complete this topic Hepatitis A Vaccines Aged Out No long er eligible based on patient's age to complete this topic IPV Vaccines Aged Out No longer eligi ble based on patient's age to complete this topic MMR Vaccines Aged Out No longer eligi ble based on patient's age to complete this topic Meningococcal ACWY Vaccine Aged Out N o longer eligible based on patient's age to complete this topic Meningococcal B Vaccine Aged Out No l onger eligible based on patient's age to complete this topic RSV Immunization Patients Under 20 months Aged Out No longer eligible b ased on patient's age to complete this topic Varicella Vaccines Aged Out No longer eligible based on patient's age to complete this topic Procedures Procedure Name Priority Date/Time Associated Diagnosis Comments LIPID PANEL Routine 07/17/2014 from Last 3 Months or Most Recently Relevant to Health Maintenance Results * (ABNORMAL) Lipid panel (07/17/2014) LDL/HDL Ratio 6(A) 0 - 4 Triglycerides 383(A) 0 - 150 mg/dL Cholesterol 201(A) 0 - 200 mg/dL HDL 33(A) >=40 mg/dL LDL Cholesterol 92 0 - 100 mg/dL Blood Venous blood specimen / Unknown Historical Provider LAB BLOOD ORDERABLES Marcella l Result from Last 3 Months or Most Recently Relevant to Health Maintenance Care Teams Staff Pharmacist Hospital Relationship Specialty Start Date End Date Rigo Paez MD [address] [place] [address] PCP - General Internal Medicine 01/12/22
== END ==
LOC: HO.SL 09:53
PROVIDERS: PCP Nurse Practitioner Family; Visit Provider Nurse Practitioner Family
DX: R06.00 Dyspnea, unspecified (principal); R06.83 Snoring; G47.19 Other hypersomnia
CPT/HCPCS: 95806

== ENCOUNTER → 2024-12-10 10:31 | Outpatient (BNV) | payer OTHER, SELFPAY | PROVIDERS: PCP Nurse Practitioner Family; Visit Provider Internal Medicine | DX: R06.83 Snoring (principal) | CPT/HCPCS: 95806 ==

== ENCOUNTER 2024-12-30 07:57 | Outpatient (AMB) | payer OTHER, SELFPAY ==
--- NOTE | 2024-12-30 08:03 | A.OFFPC_ITS ---
Vital Signs 12/30/24 08:09 Height 5 ft 10 in Weight 231 lb 4 oz BMI 33.2 BP 127/72 Blood Pressure Location Lt brachial Position Sitting Respiration 16 Pulse 84 Pulse Source Pulse Oximeter Temp 98.1 F Temp Source Oral Pulse Oximetry (%) 98 Oxygen Delivery Method Room Air Intake Visit Reasons: Annual PE Intake Note: patient here for CPE Cotton Weigher Operator Required: No Allergies cat dander Allergy (Intermediate, Verified 12/30/24 08:20) Trouble Breathing dog dander Allergy (Intermediate, Verified 12/30/24 08:20) Trouble Breathing shrimp Allergy (Verified 12/30/24 08:20) Itching Medication List - Last Reconciled 12/30/24 by Diann Prabhakar CNP albuterol sulfate 90 mcg/actuation (Ventolin HFA) 2 puffs inhalation Q6H PRN albuterol sulfate 90 mcg/actuation 2 puffs inhalation Q6H PRN apple cider vinegar mg PO bisacodyl 5 mg PO ONCE 1 day cetirizine (Zyrtec) 10 mg PO DAILY PRN 90 days cholecalciferol (vitamin D3) 10 mcg PO DAILY magnesium glycinate 100 mg PO DAILY omeprazole 20 mg PO DAILY polyethylene glycol 3350 (Miralax) 238 grams PO ONCE vitamin K2 45 mcg PO DAILY zinc acetate (Galzin) 25 mg PO DAILY Tobacco use date assessed: 12/30/24 Dental Screening Dental Screen Date: 12/30/24 Did you have a dental visit in the last 12 months?: Yes Did you have a dental problem in the last 6 months where you did not have access to dental care?: No Was dental information given to patient?: Patient has dentist HPI HPI Comments History of Present Illness Details 39-year-old male presents for an extende d physical exam. He admits taking his medications as prescribed without adverse reactions. Acute issue(s) - None Past Medical History - Hypercholesterolemia, tachycardia, IBS , nocturnal polyuria Social History - Uses 5-15 nicotine pouches daily, usin g x 2 years. History of vaping. Drinks 2-3 beers twice monthly. Smokes 3 hits of cannabis twice weekly - Has been making healthy dietary choice s. Walk 10 miles daily. Difficulty staying asleep d/t nocturnal polyuria, wakes up at least once, sleeps 7-8 hours, symptoms ongoing x 2 years Health maintenance - Last eye exam was 3-4 months ago with Sarika La - Last dental visit was 6-8 months ago - Last Tdap was in 03/10/2024 - Has not been vaccinated for the flu season; declines vaccination - Last colonoscopy was in 02/10/2020: be nign polyps. He was advised to f/u for a repeat colonoscopy in 5 years. He is [place] [facility] [place] appt for a [place]oscopy Specialists - [facility] Medical History Nocturnal polyuria Paroxysmal nocturnal dyspnea Diverticulosis Joleen-Schlatter's disease Diverticulitis IBS (irritable bowel syndrome) Mood changes Lab test negative for COVID-19 virus Back pain Hx of irritable bowel syndrome Hx of renal calculi Surgical History H/O colonoscopy Hx of excision of mass Family History Father Elevated white blood cell count Leukemia Leukemia in remission Mother Medical history non-contributory Lump of breast Paternal Grandmother Dementia Maternal Grandfather Lung cancer Family/Other Asthma Brother FH: mental illness Social History Housing: Apartment Patient Tobacco Use Status: Current everyday Tobacco user Tobacco use type: Smokeless Tobacco Years Smoked: 13 e-Cigarette/Vaping Use: Never Used Second Hand Smoke Exposure: No service: No Current occupational status: employed Current occupation: [employer] Cognitive needs: No Hearing needs: No Vision needs: No Questionnaire PHQ-9 Over the last 2 weeks, how often have you been bothered by any of the following problems? 1. Little interest or pleasure in doing things: not at all 2. Feeling down, depressed, or hopeless: not at all 3. Trouble falling or staying asleep, or sleeping too much: several days 4. Feeling tired or having little energy: not at all 5. Poor appetite or overeating: not at all 6. Feeling bad about yourself - or that you are a failure or have let yourself or your family down: not at all 7. Trouble concentrating on things, such as reading the newspaper or watching television: not at all 8. Moving or speaking so slowly that other people could have noticed. Or the opposite - being so fidgety or restless that you have been moving around a lot more than usual: not at all 9. Thoughts that you would be better off or of hurting yourself in some way: not at all Total score: 1 Depression Screening Interpretation: Negative Depression Screening Done: Yes 86471 - PHQ-9 Billing: Yes Source: Developed by Drs. Aaron Rowe, Fabiola Argueta, Luther Russell and colleagues, with an educational felix from [employer] Thrive Questionnaire Date Thrive assessed: 12/30/24 I am a: Patient What is your living situation today?: I have a steady place to live Within the past 12 months, did the food you bought not last and you didn't have the money to get more?: Never true Within the past 12 months, did you worry whether your food would run out before you got money to buy more?: Never true Do you have trouble paying for medicines?: No Do you have trouble getting transportation to medical appointments?: No Do you have trouble paying your heating and electricity bill?: No Do you have trouble taking care of your child, family member or friend?: No Do you have trouble with day-to-day activities such as bathing, preparing meals, shopping, managing finances, etc.?: No Are you currently unemployed and looking for a job?: No Are you interested in more education?: No Please select the resources that you would like help with: None Currently or been in a relationship where the following occur: No concerns reported THRIVE Score: 0 AUDIT C Alcohol Use Questionnaire (AUDIT-C) 1. How often do you have a drink containing alcohol?: Never 3. How often do you have six or more drinks on one occasion?: Never Total Score: 0 LENORA-7 AMB Questionnaire LENORA-7 Date LENORA - 7 assessed: 12/30/24 Feeling nervous, anxious, or on edge: 0 = Not at all Not being able to stop or control worryin = Not at all Worrying too much about different things: 0 = Not at all Trouble relaxin = Not at all Being so restless that it is hard to sit still: 0 = Not at all Becoming easily annoyed or irritable: 0 = Not at all Feeling afraid as if something awful might happen: 0 = Not at all Total LENORA-7 score (0-4 normal; 5-9 mild; 10-14 moderate; 15-21 severe): 0 Source: Developed by Drs. Aaron Rowe, Fabiola Argueta, Luther Russell and colleagues, with an educational felix from [employer] LENORA-7 Assessment Billing LENORA-7 Assessment Tool: LENORA-7 Assessment 04863 ACT Questionnaire In the past 4 weeks, how much of the time did your asthma keep you from getting as much done at work, school or at home?: None of the time During the past 4 weeks, how often have you had shortness of breath?: 3-6 times a week During the past 4 weeks, how often did your asthma symptoms wake you up at night or earlier than usual in the morning?: 2-3 nights a week During the past 4 weeks, how often have you had to use your rescue inhaler or nebulizer medication?: 2-3 times a week How would you rate your asthma control during the past 4 weeks?: Completely controlled Score: 18 Review of Systems Const Details: Denies chills, Denies fatigue, Denies fever(s), Denies headache(s) and Denies weakness HEENT Denies change in vision, Denies dizziness, Denies headache(s), Denies hearing loss, Denies nasal congestion, Denies sinus pain, Denies sinus pressure and Denies sore throat Card Denies chest pain, Denies lightheadedness, Denies dyspnea and Denies other (palpitations) Resp Denies cough, Denies dyspnea and Denies wheezing GI Denies abdominal pain, Denies melena, Denies hematochezia, Denies change in bowel habits, Denies dyspepsia and Denies nausea Reports nocturnal polyuria, Denies hematuria and Denies dysuria Musc Denies abnormal gait, Denies myalgias, Denies arthralgias, Denies numbness and Denies tingling Skin/Breast Denies rash, Denies unusual bruising and Denies wounds Neuro Denies abnormal gait, Denies dizziness, Denies headache(s), Denies memory loss, Denies numbness, Denies Sensory deficit (Neuro), Denies tingling and Denies weakness Psych Denies anxiety, Denies depression and Denies memory loss Endo Denies cold intolerance, Denies fatigue, Denies heat intolerance, Denies polydipsia and Denies polyuria Pal/Lymph Denies easy bleeding and Denies easy bruising Aller/Immun Denies wheezing Physical exam (Primary Care) Vital Signs: Last Vital Signs Temp 98.1 F 12/30/24 08:09 Pulse 84 12/30/24 08:09 Resp 16 12/30/24 08:09 BP 127/72 12/30/24 08:09 Pulse Ox 98 12/30/24 08:09 Oxygen Delivery Method Room Air 12/30/24 08:09 BMI result Body Mass Index 33.2 Tobacco/Smoking Status: Tobacco use Status Tobacco use date assessed 12/30/24 12/30/24 08:14 Patient Tobacco Use Status Current everyday Tobacco 12/30/24 08:14 Tobacco use type Smokeless Tobacco 12/30/24 08:14 e-Cigarette/Vaping Use Never Used 12/30/24 08:14 PHQ-9: PHQ-9 Score PHQ-9: Total score 1 12/30/24 08:23 Depression Screening Interpretation: Negative Thrive Assessment: Date of Thrive Assessment Date Thrive assessed 12/30/24 12/30/24 08:14 Currently or been in a relationship where the following occur: No concerns reported Const Other: General: no acute distress, well developed, alert and awake Nutritional Appearance: well nourished Orientation/consciousness: patient oriented x3 HENMT Head: Yes normocephalic and Yes atraumatic Ears: hearing grossly normal bilaterally and TM's normal bilaterally General nose exam: Normal external nose present and Normal nares present Mouth: Normal oral and palatal mucosa present and moist mucous membranes Teeth and gingiva: dentition normal Throat: Yes oropharynx normal Eyes Pupils: Equal, round and reactive pupils present and Pupil accommodation reflex normal EOM: EOMs intact bilaterally Neck Neck: Yes normal visual inspection, Yes no lymphadenopathy and Yes trachea midline Thyroid: Thyroid normal Carotids: no bruits Lymphatic: no lymphadenopathy noted Chest Chest palpation & inspection: normal inspection of the chest Resp Effort & Inspection: normal respiratory effort Auscultation: clear to auscultation bilaterally Cardio Rate: regular rate Rhythm: regular rhythm Heart sounds: S1 normal heart sound present, S2 normal heart sound present, no gallops, no murmurs and no rubs Bruits: no abdominal aortic bruits and no carotid bruits GI Palpation (GI): No Abdominal aortic bruit present, Soft to palpation, nontender, No hepatosplenomegaly present and No Rebound tenderness present Auscultation: normal bowel sounds General: Yes no CVA tenderness Back/Spine/Pelvis Back: no CVA tenderness Cervical Spine: cervical ROM normal and No Cervical spine tenderness Thoracic/Lumbar Spine: thoraco-lumbar ROM normal, No pain with thoraco-lumbar ROM, No thoracic spinal tenderness and No lumbar spinal tenderness Skin General: warm and dry. Normal skin color. Normal skin turgor Lesions: no lesions Rashes: no rashes Trauma: no lacerations or abrasions Wounds: no wounds Nails: normal Neuro General: patient oriented x3, gait normal and CN's II-XI intact bilaterally Cranial nerves: Yes Equal, round and reactive pupils present Cognition (Neuro): normal cognition Gait exam (Neuro): Normal gait present Motor exam (neuro): 5/5 motor strength present throughout Sensory Exam: No Sensory deficit (Neuro) Deep tendon reflexes (DTR's): Right patellar reflex intensity grade: 2+ and Left patellar reflex intensity grade: 2+ Extrem General: Yes normal to inspection, No edema and No calf tenderness Psych Appearance: grossly normal Affect: normal affect Attitude: cooperative Thought process: Normal thought process present Coding Level of Care Code Est Pt Level 3 (67904) Est Pt Prev Care 18-39y(10994) Diagnoses Normal physical examination, routine Z00.00 Sleep disturbance G47.9 Nocturnal polyuria R35.81 Nicotine dependence F17.200 Laboratory tests ordered as part of a complete physical exam (CPE) Z00.00 Additional Codes LENORA-7 Assessment Billing - LENORA-7 Assessment Tool: LENORA-7 Assessment 22403 ([id number]) PHQ-9 - 17510 - PHQ-9 Billing: Yes ([id number]) Assessment & Plan Assessment & Plan (1) Normal physical examination, routine: Code(s): Z00.00 - Encounter for general adult medical examination without abnormal findings Category: Medical Plan: No significant functional limitations noted. Continue current treatment regimen. Healthy diet and routine exercise encouraged. Perform lab work and follow-up for a telehealth visit for labs review in 2-4 weeks. Return sooner with symptoms or concerns. Verbalized understanding and agreed with the plan. (2) Sleep disturbance: Code(s): G47.9 - Sleep disorder, unspecified Category: Medical Plan: Reports difficulty staying asleep d/t nocturnal polyuria. He wakes up at least once. He sleeps 7-8 hours. Symptoms ongoing x 2 years. Instructed on sleep hygiene. Will check labs including A1c. May referred to Urology. Follow-up as needed. Verbalized understanding and agreed with the plan. (3) Nocturnal polyuria: Code(s): R35.81 - Nocturnal polyuria Category: Medical Plan: Plan as above. (4) Nicotine dependence: Code(s): F17.200 - Nicotine dependence, unspecified, uncomplicated Category: Medical Plan: He has been using 5-15 nicotine pouches daily for the past 2 years. Instructed on on the health risks and complications of nicotine and cessation encouraged. Declines medication treatment for nicotine cessation. Follow-up as needed. Verbalized understanding and agreed with the plan. (5) Laboratory tests ordered as part of a complete physical exam (CPE): Code(s): Z00.00 - Encounter for general adult medical examination without abnormal findings Category: Medical Plan: Fasting labs ordered as part of a complete physical exam. Advised to fast for at least 10 hours before getting labs drawn. May drink water Verbalized understanding and agreed with treatment plan. Orders: Orders Comprehensive [place]. Panel Fast Today Z00.00 - Encounter for general adult medical examination without abnormal findings Microalbumin, Random (w Creat) Today Z00.00 - Encounter for general adult medical examination without abnormal findings Vitamin D 25-OH Total Today Z00.00 - Encounter for general adult medical examination without abnormal findings Hemoglobin A1c Today R35.81 - Nocturnal polyuria Complete Blood Count Auto Diff Today Z00.00 - Encounter for general adult medical examination without abnormal findings Lipid Panel Today Z00.00 - Encounter for general adult medical examination without abnormal findings TSH reflex Free T4 Today Z00.00 - Encounter for general adult medical examination without abnormal findings UA CC w/rflx Micro + Cult Today Z00.00 - Encounter for general adult medical examination without abnormal findings
--- OUTSIDE RECORDS SUMMARY | 2024-12-30 08:04 | XMS_ITS | Clinical Summary ---
Author Organization [facility] it Address [address] [place] [address] Care Team Providers Care Blower Mechanic Name Role Phone Rigo Paez MD Primary [...] Problem Noted Date Diagnosed Date Morbid obesity ([facility] V24, [facility] V28) 2013 Overview (04/11/2024): BMI 40.03 on [...] 03/25/2022 Social Influencers of Health Screening 03/25/2022 Depression Screening 04/23/2024 COVID-19 Vaccine (3 - 2024-2 6 season) 2024 08/18/2020, 07/28/2020 Influenza Vaccine (#1) 2024 0, 05/12/2009 HIB [...] Recently Relevant to Health Maintenance Care Teams Blower Mechanic Relationship Specialty Start Date End Date Rigo Paez MD [address] [place] [address] PCP - General Internal Medicine 01/12/22
[2024-12-30 08:09] VITALS: BP 127/72; PULSE 84; RESP 16; TEMP 36.7; O2SAT 98; BMI 33.2
== END 2024-12-30 08:40 | disposition home or self-care (01) ==
LOC: HO.HMCFM 07:58
PROVIDERS: PCP Nurse Practitioner Family; Visit Provider Nurse Practitioner Family
DX: Z00.00 Encounter for general adult medical examination without abnormal findings (principal); G47.9 Sleep disorder, unspecified; R35.81 Nocturnal polyuria; F17.200 Nicotine dependence, unspecified, uncomplicated

== ENCOUNTER → 2024-12-30 07:57 | Outpatient (BNVA) | payer OTHER, SELFPAY | PROVIDERS: PCP Nurse Practitioner Family; Visit Provider Nurse Practitioner Family | DX: Z00.00 Encounter for general adult medical examination without abnormal findings (principal); R35.81 Nocturnal polyuria; F17.290 Nicotine dependence, other tobacco product, uncomplicated | CPT/HCPCS: 96127 ==

== ENCOUNTER 2025-01-01 06:38 | Outpatient (REF) | payer OTHER, SELFPAY ==
--- OUTSIDE RECORDS SUMMARY | 2025-01-01 06:42 | XMS_ITS | Clinical Summary ---
Author Organization [facility] it Address [address] [place] [address] Care Team Providers Care Food Safety Officer Name Role Phone Rigo Paez MD Primary [...] Problem Noted Date Diagnosed Date Morbid obesity ([facility] V24, [facility] V28) 2013 Overview (04/11/2024): BMI [...] Recently Relevant to Health Maintenance Care Teams Food Safety Officer Relationship Specialty Start Date End Date Rigo Paez MD [address] [place] [address] PCP - General Internal Medicine 01/12/22
[2025-01-01 10:16] LABS: MANUAL DIFF FLAG NO
[2025-01-01 10:19] LABS: Hematocrit 44.0 % (42.0-52.0); Hemoglobin 15.8 g/dl (14.0-18.0); Imm Gran Abs Auto 0.02 X10*3/uL (0.00-0.03); Imm Gran Pct Auto 0.3 % (0.0-0.4); Lymphocytes Absolute Auto 2.1 X10*3/uL (1.2-4.9); Mean Corpuscular HGB Conc 35.9 g/dl (31.0-36.0); Mean Corpuscular Hemoglobin 28.8 pg (27.0-33.0); Mean Corpuscular Volume 80.3 fL (80.0-98.0); NRBC Abs Auto 0.000 X10*3/uL (0.0-0.012); NRBC Pct Auto 0.0 /100WBC (0.0-0.2); Platelet Count 302 X10*3/uL (160-400); Red Blood Count 5.48 X10*6/uL (4.60-5.80); White Blood Count 7.2 X10*3/uL (4.8-10.8)
[2025-01-01 10:34] LABS: Hemoglobin A1C 126.2010 umol/L; Total Hemoglobin (HGBA1C) 4089.0452 umol/L
[2025-01-01 10:50] LABS: Appearance Urine Clear; Glucose Urine UA Negative (Negative); PH 6.5 (5.0-9.0); Specific Gravity - Urine 1.020 (1.005-1.025)
[2025-01-01 11:32] LABS: Alanine Aminotransferase 41 U/L (0-40); Albumin Level 4.8 g/dL (3.5-5.0); Alkaline Phosphatase 71 U/L (39-117); Anion Gap 14 (12-20); Aspartate Amino Transferase 38 U/L (5-37); Blood Urea Nitrogen 15 mg/dL (9-16); Calcium 9.9 mg/dL (8.4-10.2); Carbon Dioxide 22 mmol/L (22-29); Chloride 107 mmol/L (96-108); Cholesterol 213 mg/dL (<200); Estimated Glomerular Filt Rate > 60; HDL Cholesterol 46 mg/dL (>40); Potassium 4.0 mmol/L (3.3-5.1); Sodium 139 mmol/L (135-145); Total Protein 7.6 g/dL (6.5-8.0); Triglycerides 196 mg/dL (<150)
[2025-01-01 11:57] LABS: Microalbum/Creatinine Ratio Ur 4.6 ug/mg cr (<30)
== END 2025-01-01 06:39 | disposition home or self-care (01) ==
LOC: HO.HMGCLDS 06:38
PROVIDERS: PCP Nurse Practitioner Family; Visit Provider Nurse Practitioner Family
DX: Z00.00 Encounter for general adult medical examination without abnormal findings (principal); R35.81 Nocturnal polyuria; Z13.1 Encounter for screening for diabetes mellitus; Z13.6 Encounter for screening for cardiovascular disorders
CPT/HCPCS: 36415; 80053; 80061; 81003; 82043; 82306; 82570; 83036; 84443; 85025

== ENCOUNTER 2025-01-20 15:22 | Outpatient (AMB) | payer OTHER, SELFPAY ==
--- NOTE | 2025-01-20 14:48 | A.OFFPC_ITS ---
Intake Visit Reasons: Tele 2-4 wks labs review Intake Note: patient here for 2-4 wks Telehealth follow up for labs Produce Field Merchandiser Required: No Allergies cat dander Allergy (Intermediate, Verified 01/20/25 15:20) Trouble Breathing dog dander Allergy (Intermediate, Verified 01/20/25 15:20) Trouble Breathing shrimp Allergy (Verified 01/20/25 15:20) Itching Tobacco use date assessed: 01/20/25 Dental Screening Dental Screen Date: 01/20/25 Did you have a dental visit in the last 12 months?: Yes Did you have a dental problem in the last 6 months where you did not have access to dental care?: No Was dental information given to patient?: Patient has dentist HPI HPI Comments History of Present Illness Details 39-year-old female presents for a teleholzer hospital visit for review of recent lab results. He has history of nocturia polyuria for the past 2 years. He wakes up at least once a night to urinate. He urinates every 45 minutes to an hour with adequate hydration with water. He denies dysuria, hematuria, or other urinary symptoms. No acute symptoms at this time. [facility] Medical History Nocturnal polyuria Paroxysmal nocturnal dyspnea Diverticulosis Joleen-Schlatter's disease Diverticulitis IBS (irritable bowel syndrome) Mood changes Lab test negative for COVID-19 virus Back pain Hx of irritable bowel syndrome Hx of renal calculi Surgical History H/O colonoscopy Hx of excision of mass Family History Father Elevated white blood cell count Leukemia Leukemia in remission Mother Medical history non-contributory Lump of breast Paternal Grandmother Dementia Maternal Grandfather Lung cancer Family/Other Asthma Brother FH: mental illness Social History Housing: Apartment Patient Tobacco Use Status: Current everyday Tobacco user Tobacco use type: Smokeless Tobacco Years Smoked: 13 e-Cigarette/Vaping Use: Never Used Second Hand Smoke Exposure: No service: No Current occupational status: employed Current occupation: [employer] Cognitive needs: No Hearing needs: No Vision needs: No Questionnaire Thrive Questionnaire Date Thrive assessed: 12/30/24 LENORA-7 AMB Questionnaire LENORA-7 Date LENORA - 7 assessed: 12/30/24 Source: Developed by Drs. Aaron Rowe, Fabiola Argueta, Luther Russell and colleagues, with an educational felix from [employer]. Physical exam (Primary Care) Tobacco/Smoking Status: Tobacco use Status Tobacco use date assessed 12/30/24 01/20/25 14:50 Patient Tobacco Use Status Current everyday Tobacco 01/20/25 14:50 Tobacco use type Smokeless Tobacco 01/20/25 14:50 e-Cigarette/Vaping Use Never Used 01/20/25 14:50 Thrive Assessment: Date of Thrive Assessment Date Thrive assessed 12/30/24 01/20/25 14:50 Const Other: Patient is alert and oriented x3 Telehealth Telehealth Telehealth Platform: Telephone Location of provider rendering services: practice address Location of patient: address on file Patient Identification confirmed using: Name, : Yes Telehealth method: voice only Patient verbally consented to treatment: Yes Patient verbally consented to billing insurance company: Yes Patient informed of any privacy concerns related to visit: Yes Coding Level of Care Code Tele Est Pt Level 3 (18722) Diagnoses Hyperlipidemia E78.5 Transaminitis R74.01 Nocturnal polyuria R35.81 Urinary frequency R35.0 Time Spent (min) 15 Assessment & Plan Assessment & Plan (1) Hyperlipidemia: Code(s): E78.5 - Hyperlipidemia, unspecified Category: Medical Plan: Recent triglycerides, total cholesterol, and LDL levels are elevated, 196, 213, and 128 respectively, HDL level is normal. Advised to limit foods high in saturated fat and avoid foods high in trans fat. Routine exercise encouraged. Fast for 10-12 hours, may drink water, and perform lipid panel blood work a few days before next visit. Follow-up in 2 months or sooner with symptoms or concerns. Verbalized understanding and agreed with the plan. (2) Transaminitis: Code(s): R74.01 - Elevation of levels of liver transaminase levels Category: Medical Plan: Recent AST and ALT levels are slightly elevated, 38 and 41 respectively. Routine exercise/with management encouraged. Will recheck lipid panel in 2 months. Verbalized understanding and agreed with the plan. (3) Nocturnal polyuria: Code(s): R35.81 - Nocturnal polyuria Category: Medical Plan: He has history of nocturia polyuria for the past 2 years. He wakes up at least once a night to urinate. He urinates every 45 minutes to an hour with adequate hydration with water. He denies dysuria, hematuria, or other urinary symptom. Recent labs are unrevealing. Referred to Urology. Follow-up as needed. Verbalized understanding and agreed with the plan. (4) Urinary frequency: Code(s): R35.0 - Frequency of micturition Category: Medical Plan: Plan as above. Orders: Orders Lipid Panel 2 Months E78.5 - Hyperlipidemia, unspecified Liver Panel 2 Months R74.01 - Elevation of levels of liver transaminase levels Referrals Urology Referral R35.0 - Frequency of micturition, R35.81 - Nocturnal polyuria
--- OUTSIDE RECORDS SUMMARY | 2025-01-20 16:39 | XMS_ITS | Clinical Summary ---
Author Organization [facility] [address] it Address [address] [place] [address] Care Team Providers Care Delinquency Counselor Name Role Phone Rigo Paez MD Primary [...] Problem Noted Date Diagnosed Date Morbid obesity ([facility] V24, [facility] V28) 2013 Overview (04/11/2024): BMI 40.03 on 02/07/13. 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 Dermatophytosis 07/04/2007 Overview (04/11/2024): Tinea pedis Immunizations Immunization Administration Dates Next Due H1N1 Inj Preservative [...] Years) (1 of 2 - PCV) 2004 HPV Vaccines (1 - 3-dose SCD M series) 2012 DTaP,Tdap,and Td Vaccines (2 - Td or Tdap) 07/03/2017 07/04/2007 Cholesterol Screening (Lipid Panel) 03/25/2022 07/17/2014 HIV Screening 03/25/2022 Hepatitis C Screening 03/25/2022 Social Influencers of Health Screening 03/25/2022 Depression Screening 04/23/2024 COVID-19 Vaccine (3 - 2024-2 6 season) 2024 08/18/2020, 07/28/2020 Influenza Vaccine (#1) 2024 0, 05/12/2009 RSV Immunization Adult Patients (1 - 1-dose 75+ series) 2060 HIB Vaccines Aged Out No longer eligi [...] Recently Relevant to Health Maintenance Care Teams Delinquency Counselor Relationship Specialty Start Date End Date Rigo Paez MD [address] [place] [address] PCP - General Internal Medicine 01/12/22
== END 2025-01-20 15:54 | disposition home or self-care (01) ==
LOC: HO.HMCFM 15:22
PROVIDERS: PCP Nurse Practitioner Family; Visit Provider Nurse Practitioner Family
DX: E78.5 Hyperlipidemia, unspecified (principal); R74.01 Elevation of levels of liver transaminase levels; R35.81 Nocturnal polyuria; R35.0 Frequency of micturition

== ENCOUNTER 2025-04-10 13:03 | Outpatient (AMB) | payer OTHER, SELFPAY ==
--- NOTE | 2025-04-10 13:22 | A.OFFVIS_ITS ---
Intake Visit Reasons: Frequency/Nocturia/Polyuria/UA/PVR(set) Intake Note: Reason for Visit: New Patient Frequency/Nocturia/Polyuria Urology Meds: None Blood Thinners: None Antibiotic Allergy: None Labs: None Imaging: None Last PVR: None PVR:0ML Family History: Prostate Cancer? No Bladder Cancer? No Kidney Cancer? No Smoking History? Yes Previous Urology? No Order Entry Representative Required: No Accompanied by: Self / Same As Patient Allergies cat dander Allergy (Intermediate, Verified 04/10/25 13:23) Trouble Breathing dog dander Allergy (Intermediate, Verified 04/10/25 13:23) Trouble Breathing shrimp Allergy (Verified 04/10/25 13:23) Itching HPI Comments Details: Flo is a pleasant male. He is seen for the following urologic conditions - nocturia UA normal. Last HbA1c 5.0. PFSH Medical History Nocturnal polyuria Paroxysmal nocturnal dyspnea Diverticulosis Crumrod-Schlatter's disease Diverticulitis IBS (irritable bowel syndrome) Mood changes Lab test negative for COVID-19 virus Back pain Hx of irritable bowel syndrome Hx of renal calculi Surgical History H/O colonoscopy Hx of excision of mass Family History Father Elevated white blood cell count Leukemia Leukemia in remission Mother Medical history non-contributory Lump of breast Paternal Grandmother Dementia Maternal Grandfather Lung cancer Family/Other Asthma Brother FH: mental illness Social History Housing: Apartment Patient Tobacco Use Status: Current everyday Tobacco user Tobacco use type: Smokeless Tobacco Years Smoked: 13 e-Cigarette/Vaping Use: Never Used Second Hand Smoke Exposure: No service: No Current occupational status: employed Current occupation: [employer] Cognitive needs: No Hearing needs: No Vision needs: No Office Procedures Post Void Residual Post Residual Void Post Void Residual (PVR): 0 [id number] Void Residual by ultrasound Results AMB Urinalysis, Automated UA Leukoctes 0 Luis/uL Last Edit by DANA Haro on 04/10/25 13:30 UA Nitrite Negative Last Edit by Marta Stewart, RMA on 04/10/25 13:30 UA Urobilinogen 0.2 mg/dL Last Edit by Marta Stewart, RMA on 04/10/25 13:3 0 UA Protein 15 mg/dL Last Edit by Marta Stewart, RMA on 04/10/25 13:30 UA pH 6.0 Last Edit by Marta Stewart, RMA on 04/10/25 13:30 UA Blood 0 Spencer/uL Last Edit by Marta Stewart, RMA on 04/10/25 13:30 UA Specific [place] 1.020 Last Edit by Marta Stewart, RMA on 04/10/25 13: 30 UA Ketone Negative Last Edit by Marta Stewart, RMA on 04/10/25 13:30 UA Bilirubin 0 mg/dL Last Edit by Marta Stewart, RMA on 04/10/25 13:30 UA Glucose 0 mg/dL Last Edit by Marta Stewart, RMA on 04/10/25 13:30 Results Reviewed Results Reviewed: Laboratory Last Values Urine pH (Auto) 6.0 04/10/25 13:23 Specific [place] (Auto) 1.020 04/10/25 13:23 Urine Protein (Auto) 15 mg/dL 04/10/25 13:23 Glucose (UA)(Auto) 0 mg/dL 04/10/25 13:23 Urine Ketones (Auto) Negative 04/10/25 13:23 Urine Blood (Auto) 0 Spencer/uL 04/10/25 13:23 Urine Nitrite (Auto) Negative 04/10/25 13:23 Urine Bilirubin (Auto) 0 mg/dL 04/10/25 13:23 Urine Urobilinogen (Auto) 0.2 mg/dL 04/10/25 13:23 Leukocyte Esterase (Auto) 0 Luis/uL 04/10/25 13:23 Assessment & Plan Assessment & Plan Orders: Orders AMB Urinalysis Automated Today Z13.9 - Encounter for screening, unspecified AMB Post Void Residual by ultrasound Today R35.0 - Frequency of micturition Coding CPT Codes Post Residual Void - PVR CPT Code: [id number] Void Residual by ultrasound ([id number])
--- OUTSIDE RECORDS SUMMARY | 2025-04-10 14:52 | XMS_ITS | Clinical Summary ---
Author Organization [facility] it Address [address] [place] [address] Care Team Providers Care Aerotriangulation Specialist Name Role Phone Rigo Paez MD Primary [...] Problem Noted Date Diagnosed Date Morbid obesity 04/28/2013 Overview (04/11/2024): BMI 40.03 on 02/07/13. Hyperlipidemia [...] Used Date Smoking Tobacco: Every Day Cigarettes 0.5 Last attempted to quit: 05/08/2015 Smokeless Tobacco: Never Alcohol Use Standard Drinks/Week Comments No 0 (1 standard drink = 0.6 oz pur e alcohol) Sex and Gender Information Value Date Recorded Sex Assigned at Not on file Legal Sex Male 5:36 PM EST Gender Identity Not on file Sexual Orientation Not on file Last Filed Vital Signs Vital Sign Reading [...] mg/dL Blood Venous blood specimen / Unknown us Historical Provider LAB BLOOD ORDERABLES Marcella l Result from Last 3 Months or Most Recently Relevant to Health Maintenance Care Teams Aerotriangulation Specialist Relationship Specialty Start Date End Date Rigo Paez MD [address] [place] [address] PCP - General Internal Medicine 01/12/22
== END 2025-04-10 13:59 | disposition home or self-care (01) ==
LOC: HO.HUSH 13:04
PROVIDERS: PCP Nurse Practitioner Family; Visit Provider Urology
DX: Z13.9 Encounter for screening, unspecified (principal)

== ENCOUNTER → 2025-04-10 13:03 | Outpatient (BNVA) | payer OTHER, SELFPAY | PROVIDERS: PCP Nurse Practitioner Family; Visit Provider Urology | DX: R35.0 Frequency of micturition (principal); R35.81 Nocturnal polyuria | CPT/HCPCS: 51798; 81003 ==